=== PATIENT | male | born 1930 | race Caucasian/White ===

== ENCOUNTER 2017-08-20 12:21 | Observation (INO) | payer OTHER ==
--- NOTE | 2017-08-20 12:31 | CPEKG ---
Heart Rate: 136 RR Interval: 441 P-R Interval: 460 QRSD Interval: 78 QT Interval: 292 QTC Interval: 440 P Malcolm: 0 QRS Malcolm: 71 T Wave Malcolm: 91 EKG Severity - ABNORMAL ECG - EKG Impression: atrial flutter with RVR EKG Impression: CONSIDER LEFT VENTRICULAR HYPERTROPHY Electronically Signed By: Ada Flores 21-Aug-2017 10:39:43
--- NOTE | 2017-08-20 12:39 | EDPHY ---
H & P Time Seen by Provider: 08/20/17 12:27 HPI/ROS: CHIEF COMPLAINT: atrial flutter HISTORY OF PRESENT ILLNESS: This patient is an 87 year old male with history of atrial flutter with a chief complaint of atrial flutter with RVR. He saw his physician today for sinus drainage and his heart rate was noted to be in the 130s. He is asymptomatic and has not noticed the rapid heart rate, dizziness, shortness of breath or chest pain. Unclear onset of atrial flutter. He had a previous episode of atrial flutter 1 year ago and subsequent cardioversion. He was on amiodarone transiently, but this medication has been discontinued. He takes a baby aspirin daily. No known aggravating factors and no recent illness. REVIEW OF SYSTEMS: A 10 point review of systems was performed and is negative with the exception of the elements mentioned in the history of present illness. Past Medical/Surgical History: 1. Hyperlipidemia (Lipitor) 2. Hypothyroid (Synthroid) 3. BPH (Avodart) 4. Atrial flutter Social History: . Family member at bedside. Lives in [place]. Retired. Physical Exam: General Appearance: Alert, no distress Eyes: Pupils equal and round, no conjunctival pallor or injection ENT, Mouth: Mucous membranes moist Neck: Normal inspection Respiratory: Lungs are clear to auscultation Cardiovascular: Regular tachycardia Gastrointestinal: Abdomen is soft and non- tender Neurological: A&O, nonfocal, normal gait Skin: Warm and dry, no rash Extremities: Nontender, no pedal edema Psychiatric: Mood and affect normal Constitutional: Initial Vital Signs Temperature (C) 36.9 C 08/20/17 12:40 Heart Rate 136 H 08/20/17 12:40 Respiratory Rate 16 08/20/17 12:40 Blood Pressure 161/103 H 08/20/17 12:40 O2 Sat (%) 93 08/20/17 12:40 O2 Delivery Mode Room Air Allergies/Adverse Reactions: Cephalosporins Allergy (Verified 08/20/17 13:32) Rash Home Medications: Medication Instructions Recorded Aspirin [Aspirin 81mg (*)] 81 mg PO DAILY 08/20/17 Atorvastatin Calcium [Lipitor 10 10 mg PO DAILY 08/20/17 mg (*)] Atorvastatin Calcium [Lipitor 20 20 mg PO DAILY 08/20/17 mg (*)] Dutasteride [Avodart 0.5 MG (*)] 0.5 mg PO DAILY 08/20/17 Levothyroxine [Synthroid 88 mcg 88 mcg PO DAILY06 08/20/17 (*)] Medical Decision Making - Diagnostics EKG Interpretation: EKG interpreted by me reveals atrial flutter, ventricular rate 136 ED Course/Re-evaluation: 87 y/o male presents with atrial flutter. Exam reveals regular tachycardia, otherwise unremarkable. IV established. Plan for CBC, BMP. Plan to administer 125mg Diltiazem. Plan to admit. 12:57 Consulted with hospitalist service. Dr. Bruno accepts admission. Differential Diagnosis: Differential diagnosis includes though it is not limited to hypotension, pneumonia, pulmonary embolism, aortic dissection, pericarditis, acute coronary syndrome. - Data Points Laboratory Results: Laboratory Results 08/20/17 12:35 08/20/17 12:35 Medications Given: Apixaban (Eliquis) 5 mg PO BID [facility] Stop: 02/16/18 17:44 Last Admin: 08/20/17 18:43 Dose: 5 mg Levothyroxine Sodium (Synthroid) 88 mcg PO DAILY06 [facility] Stop: 02/17/18 05:59 Last Admin: 08/21/17 06:04 Dose: 88 mcg Discontinued Medications Diltiazem HCl (Cardizem 25 Mg/5 Ml Vial) 10 mg IVP EDNOW ONE Stop: 08/20/17 12:55 Last Admin: 08/20/17 13:11 Dose: 10 mg Diltiazem HCl 125 mg/ Dextrose 125 mls @ 0 mls/hr IV EDNOW ONE; As Directed PRN Reason: Protocol Stop: 08/20/17 12:55 Last Admin: 08/20/17 13:34 Dose: 125 mls Departure - Departure Disposition: [facility] Inpatient Acute Clinical Impression: Atrial flutter Qualifiers: Atrial flutter type: unspecified Qualified Code(s): I48.92 - Unspecified atrial flutter Condition: Fair Report Scribed for: Ada Flores Report Scribed by: Mely Tabares Date of Report: 08/20/17 Time of Report: 12:58 Physician Review and Approval Statement: 08/20/17 12:58 Portions of this note were transcribed by a medical technicians. I personally performed a history, physical exam, medical decision making, and confirmed accuracy of information the transcribed note.
[2017-08-20 12:44] LABS: % IMMATURE GRANULYOCYTES 0.3 % (0.0-1.1); ABSOLUTE IMMATURE GRANULOCYTES 0.03 10^3/uL (0.00-0.10); ADD DIFF? NO; ADD MORPH? NO; ADD SCAN? NO; ATYPICAL LYMPHOCYTE FLAG 0 (0-99); FRAGMENT RBC FLAG 0 (0-99); HEMATOCRIT 45.4 % (40.0-51.0); HEMOGLOBIN 15.5 g/dL (13.7-17.5); LEFT SHIFT FLG 0 (0-99); LIPEMIA HEMOLYSIS FLAG 90 (0-99); MEAN CELL HEMOGLOBIN 35.6 pg (27.9-34.1); MEAN CELL HEMOGLOBIN CONCENTR. 34.1 g/dL (32.4-36.7); MEAN CELL VOLUME 104.1 fL (81.5-99.8); MEAN PLATELET VOLUME 8.9 fL (8.7-11.7); PLATELET CLUMPS FLAG 0 (0-99); PLATELET COUNT 264 10^3/uL (150-400); RED BLOOD CELL COUNT 4.36 10^6/uL (4.40-6.38); RED CELL DISTRIBUTION WIDTH 13.2 % (11.5-15.2)
[2017-08-20] MEDS ORDERED: DILTIAZEM 25 MG/5 ML VIAL IVP ONE (12:54)
[2017-08-20] MEDS ORDERED: DILTIAZEM 125 MG in D5W 125 ML IV ONE (12:54)
[2017-08-20 12:58] LABS: ANION GAP 18 mEq/L (8-16); CALCIUM 9.4 mg/dL (8.5-10.4); CARBON DIOXIDE 25 mEq/l (22-31); CHLORIDE 100 mEq/L (97-110); CREATININE 1.1 mg/dL (0.7-1.3); GLOMERULAR FILTRATION RATE > 60; GLUCOSE 116 mg/dL (70-100); POTASSIUM 4.8 mEq/L (3.5-5.2); SODIUM 143 mEq/L (134-144)
--- NOTE | 2017-08-20 16:16 | PDCARCONS ---
Cardiology Consult Reason for Consult: Atrial flutter noted at PCP office Chief Complaint: No complaints Requesting Physician: Hospitalist Crew History of Present Illness: Patient is an 87 y/o male, known to [facility] (Dr. Jung Woods) with atrial flutter treated in the past, hypothyroidism, HLP, and BPH, who presents to [facility], after PCP noted accelerated, irregular heart rates in the office. Patient is without any cardiovascular complaints - no chest pains or pressure, no PND or orthopnea. Daughter, present in the room with the patient, wanted to have the patient seen by PCP given concerns about "congestion ". While in the office, PCP noted aforementioned heart rate/rhythm. If anything, there has been a slight drop in functional ability (fatigue is more present). In speaking with the patient, earlier this year, the patient was treated for atrial fib/flutter with VALERIE and successful cardioversion. Patient was on Eliquis without issues post cardioversion given a lower [id number] risk (2 for age). ASA therapy was to continue (and has). While in the ER, patient was started on CCB IV drip, and there has been moderate reduction in the patient's heart rate, but atrial flutter continues to be noted. Remainder of the 12 point review of systems was unremarkable. History Information - Allergies/Home Medication List Allergies/Adverse Reactions: Cephalosporins Allergy (Verified 08/20/17 13:32) Rash Home Medications: Aspirin [Aspirin 81mg (*)] 81 mg PO DAILY 08/20/17 [Last Taken 08/20/17] Atorvastatin Calcium [Lipitor 10 mg (*)] 10 mg PO DAILY 08/20/17 [Last Taken ] Atorvastatin Calcium [Lipitor 20 mg (*)] 20 mg PO DAILY 08/20/17 [Last Taken ] Dutasteride [Avodart 0.5 MG (*)] 0.5 mg PO DAILY 08/20/17 [Last Taken 08/20/17] Levothyroxine [Synthroid 88 mcg (*)] 88 mcg PO DAILY06 08/20/17 [Last Taken ] I have personally reviewed and updated: family history, medical history, social history, surgical history Past Medical History: - Past Medical History atrial fibrillation, hyperlipidemia - Surgical History Reports: no pertinent surgical hx - Family History Positive for: non-pertinent - Social History Smoking Status: Never smoked Alcohol Use: None Drug Use: None Cardiac History - Cardiac History Past Cardiac History: OTHER (atrial flutter) Cardiac Risk Factors: lipidemia, age > 65, male Timing/Duration: Unsure Associated Symptoms: denies symptoms Age in Years: 75 or older Sex: Male Congestive Heart Failure History: No Hypertension History: No Stroke/TIA/Thromboembolism History: No Vascular Disease History: No Diabetes Mellitus: No [id number] Score: 5 Physical Exam Physical Exam: Temp Pulse Resp BP Pulse Ox 36.6 C 93 20 118/70 94 08/20/17 14:10 08/20/17 14:10 08/20/17 14:10 08/20/17 14:10 08/20/17 14:10 Constitutional: no apparent distress, appears nourished, not in pain Eyes: PERRL Ears, Nose, Mouth, Throat: moist mucous membranes, hearing normal Cardiovascular: irregularly irregular, tachycardia, No systolic murmur, No diastolic murmur, No JVD Peripheral Pulses: 2+: dorsalis-pedis (R), dorsalis-pedis (L) Respiratory: no respiratory distress, no rales or rhonchi, clear to auscultation Gastrointestinal: normoactive bowel sounds Skin: warm, normal color, No no induration, No rash Musculoskeletal: full muscle strength Neurologic: AAOx3, sensation intact bilaterally, CN II-XII Intact, No weakness Psychiatric: interacting appropriately, not anxious Lab and Imaging 08/20/17 12:35 08/20/17 12:35 WBC 9.58 10^3/uL (3.80-9.50) H 08/20/17 12:35 RBC 4.36 10^6/uL (4.40-6.38) L 08/20/17 12:35 Hgb 15.5 g/dL (13.7-17.5) 08/20/17 12:35 Hct 45.4 % (40.0-51.0) 08/20/17 12:35 MCV 104.1 fL (81.5-99.8) H 08/20/17 12:35 MCH 35.6 pg (27.9-34.1) H 08/20/17 12:35 MCHC 34.1 g/dL (32.4-36.7) 08/20/17 12:35 RDW 13.2 % (11.5-15.2) 08/20/17 12:35 Plt Count 264 10^3/uL (150-400) 08/20/17 12:35 MPV 8.9 fL (8.7-11.7) 08/20/17 12:35 Neut % (Auto) 76.5 % (39.3-74.2) H 08/20/17 12:35 Lymph % (Auto) 12.9 % (15.0-45.0) L 08/20/17 12:35 [place] % (Auto) 9.1 % (4.5-13.0) 08/20/17 12:35 Eos % (Auto) 0.3 % (0.6-7.6) L 08/20/17 12:35 Baso % (Auto) 0.9 % (0.3-1.7) 08/20/17 12:35 Nucleat RBC Rel Count 0.0 % (0.0-0.2) 08/20/17 12:35 Absolute Neuts (auto) 7.32 10^3/uL (1.70-6.50) H 08/20/17 12:35 Absolute Lymphs (auto) 1.24 10^3/uL (1.00-3.00) 08/20/17 12:35 Absolute Monos (auto) 0.87 10^3/uL (0.30-0.80) H 08/20/17 12:35 Absolute Eos (auto) 0.03 10^3/uL (0.03-0.40) 08/20/17 12:35 Absolute Basos (auto) 0.09 10^3/uL (0.02-0.10) 08/20/17 12:35 Absolute Nucleated RBC 0.00 10^3/uL (0-0.01) 08/20/17 12:35 Immature Gran % 0.3 % (0.0-1.1) 08/20/17 12:35 Immature Gran # 0.03 10^3/uL (0.00-0.10) 08/20/17 12:35 Sodium 143 mEq/L (134-144) 08/20/17 12:35 Potassium 4.8 mEq/L (3.5-5.2) 08/20/17 12:35 Chloride 100 mEq/L (97-110) 08/20/17 12:35 Carbon Dioxide 25 mEq/l (22-31) 08/20/17 12:35 Anion Gap 18 mEq/L (8-16) H 08/20/17 12:35 BUN 20 mg/dL (7-23) 08/20/17 12:35 Creatinine 1.1 mg/dL (0.7-1.3) 08/20/17 12:35 Estimated GFR > 60 08/20/17 12:35 Glucose 116 mg/dL (70-100) H 08/20/17 12:35 Calcium 9.4 mg/dL (8.5-10.4) 08/20/17 12:35 Visualized and Interpreted Chest x-ray results: No Visualized and Interpreted EKG results: Yes EKG Interpretation: Positive for: other (atrial flutter ) Telemetry: atrial flutter A/P Assessment: Patient is an 87 y/o male with return of atrial flutter. Uncertain duration of this event - the patient is without appreciable symptoms. There has been slightly more "fatigue" than normal, but no other complaints were voiced. Earlier in 2016, the patient had VALERIE and successful cardioversion for atrial fib /flutter, and given low [id number] score, was taken off NOAC therapy (ASA therapy continued). Daughter was present with the patient in the room today. Plan: Would complete the IV CCB therapy as at present - this has led to some reduction in heart rates noted. Would resume Eliquis therapy as prior for CVA prophylaxis. Would consider echocardiography for assessment of LVEF, chamber dimensions, wall motion, and valve morphology. Given an uncertainty on the duration of the arrhythmia AND a lack of symptoms with the arrhythmia, would not aggressively pursue VALERIE with cardioversion at present. Would convert IV to PO CCB therapy tomorrow, and work towards outpatient follow up with discussion about VALERIE/cardioversion at that time. Hope for better rate control, but need to monitor heart rates and the response in this older male to ensure that heart rates to not become significantly bradycardia. Would also monitor the patient to ensure that there is not borderline hypotension given the reintroduction in NOAC therapy (with concerns for fall). These concerns were discussed with patient and family today. Will continue to follow patient while in house.
[2017-08-20] MEDS ORDERED: ONDANSETRON DISINTEGRATING 4 MG TAB PO PRN (17:06)
[2017-08-20] MEDS ORDERED: ACETAMINOPHEN 325 MG TAB PO PRN (17:06)
[2017-08-20] MEDS ORDERED: ONDANSETRON 4 MG/2 ML VIAL IVP PRN (17:06)
--- NOTE | 2017-08-20 17:13 | PDGENHP ---
History and Physical - Chief Complaint Aflutter - History of Present Illness This patient is an 87 year old male with history of atrial flutter who was seen by his PCP today and sent to the E.D due to Aflutter. He had an episode and subsequent cardioversion in October, 11 months ago, and was followed by Dr. oWods. He is not currently anticoagulated but does take a daily baby aspirin. He visited his primary care physician for a sinus problem this morning who noted the abnormal rhythm. No cough or fever. He currently feels asymptomatic. He denies dizziness or shortness of breath. No swelling in his legs, chest pain, abdominal pain, urinary complains, or other associated symptoms. Cardizem IV was started with improvement of his HR. BP has been stable. He continue to no be symptomatic. Past Medical/Surgical History: 1. Hyperlipidemia (Lipitor) 2. Hypothyroid (Synthroid) 3. BPH (Avodart) 4. Atrial flutter (History of cardioversion, not anticoagulated. Takes ASA 81mg QD) Soc: No tobacco, daily ETOH (one drink daily), no illicits, lives alone FmHx: [place] History Information - Allergies/Home Medication List Allergies/Adverse Reactions: Cephalosporins Allergy (Verified 08/20/17 13:32) Rash Home Medications: Aspirin [Aspirin 81mg (*)] 81 mg PO DAILY 08/20/17 [Last Taken 08/20/17] Atorvastatin Calcium [Lipitor 10 mg (*)] 10 mg PO DAILY 08/20/17 [Last Taken ] Atorvastatin Calcium [Lipitor 20 mg (*)] 20 mg PO DAILY 08/20/17 [Last Taken ] Dutasteride [Avodart 0.5 MG (*)] 0.5 mg PO DAILY 08/20/17 [Last Taken 08/20/17] Levothyroxine [Synthroid 88 mcg (*)] 88 mcg PO DAILY06 08/20/17 [Last Taken ] I have personally reviewed and updated: medical history, social history, surgical history - Past Medical History atrial fibrillation, hyperlipidemia - Surgical History Reports: no pertinent surgical hx - Family History Positive for: non-pertinent - Social History Smoking Status: Never smoked Alcohol Use: None Drug Use: None Review of Systems Review of Systems: ROS: 10pt was reviewed & negative except for what was stated in HPI & below Physical Exam Physical Exam: Temp Pulse Resp BP Pulse Ox 36.6 C 93 20 118/70 94 08/20/17 14:10 08/20/17 14:10 08/20/17 14:10 08/20/17 14:10 08/20/17 14:10 Constitutional: no apparent distress, appears nourished Eyes: PERRL, EOMI Ears, Nose, Mouth, Throat: moist mucous membranes, hearing normal Cardiovascular: irregularly irregular, No edema Respiratory: no respiratory distress, no rales or rhonchi, clear to auscultation Gastrointestinal: normoactive bowel sounds, soft, non-tender abdomen Genitourinary: no bladder fullness Skin: warm Neurologic: AAOx3 Psychiatric: interacting appropriately, not anxious, not encephalopathic Lab Data & Imaging Review 08/20/17 12:35 08/20/17 12:35 WBC 9.58 10^3/uL (3.80-9.50) H 08/20/17 12:35 RBC 4.36 10^6/uL (4.40-6.38) L 08/20/17 12:35 Hgb 15.5 g/dL (13.7-17.5) 08/20/17 12:35 Hct 45.4 % (40.0-51.0) 08/20/17 12:35 MCV 104.1 fL (81.5-99.8) H 08/20/17 12:35 MCH 35.6 pg (27.9-34.1) H 08/20/17 12:35 MCHC 34.1 g/dL (32.4-36.7) 08/20/17 12:35 RDW 13.2 % (11.5-15.2) 08/20/17 12:35 Plt Count 264 10^3/uL (150-400) 08/20/17 12:35 MPV 8.9 fL (8.7-11.7) 08/20/17 12:35 Neut % (Auto) 76.5 % (39.3-74.2) H 08/20/17 12:35 Lymph % (Auto) 12.9 % (15.0-45.0) L 08/20/17 12:35 [place] % (Auto) 9.1 % (4.5-13.0) 08/20/17 12:35 Eos % (Auto) 0.3 % (0.6-7.6) L 08/20/17 12:35 Baso % (Auto) 0.9 % (0.3-1.7) 08/20/17 12:35 Nucleat RBC Rel Count 0.0 % (0.0-0.2) 08/20/17 12:35 Absolute Neuts (auto) 7.32 10^3/uL (1.70-6.50) H 08/20/17 12:35 Absolute Lymphs (auto) 1.24 10^3/uL (1.00-3.00) 08/20/17 12:35 Absolute Monos (auto) 0.87 10^3/uL (0.30-0.80) H 08/20/17 12:35 Absolute Eos (auto) 0.03 10^3/uL (0.03-0.40) 08/20/17 12:35 Absolute Basos (auto) 0.09 10^3/uL (0.02-0.10) 08/20/17 12:35 Absolute Nucleated RBC 0.00 10^3/uL (0-0.01) 08/20/17 12:35 Immature Gran % 0.3 % (0.0-1.1) 08/20/17 12:35 Immature Gran # 0.03 10^3/uL (0.00-0.10) 08/20/17 12:35 Sodium 143 mEq/L (134-144) 08/20/17 12:35 Potassium 4.8 mEq/L (3.5-5.2) 08/20/17 12:35 Chloride 100 mEq/L (97-110) 08/20/17 12:35 Carbon Dioxide 25 mEq/l (22-31) 08/20/17 12:35 Anion Gap 18 mEq/L (8-16) H 08/20/17 12:35 BUN 20 mg/dL (7-23) 08/20/17 12:35 Creatinine 1.1 mg/dL (0.7-1.3) 08/20/17 12:35 Estimated GFR > 60 08/20/17 12:35 Glucose 116 mg/dL (70-100) H 08/20/17 12:35 Calcium 9.4 mg/dL (8.5-10.4) 08/20/17 12:35 Assessment & Plan Assessment: #Atrial flutter, unknown how long he has been in this rhythm. #HLD #Hypothyroidism #Weakness and Deconditioning Plan: -Cards following -Cont IV Diltiazem, consider transitioning to PO tomorrow -pending clinical course, VALERIE in either the inpatient setting or outpatient -restart Eliquis which he was previously on -PT/OT -Check lipid panel -restart home meds. Hold aspirin -DNR
[2017-08-20] MEDS ORDERED: DILTIAZEM 125 MG in D5W 125 ML IV SCH (17:15)
[2017-08-20] MEDS: APIXABAN 5 MG TAB PO SCH (18:43)
[2017-08-21 05:18] LABS: % IMMATURE GRANULYOCYTES 0.3 % (0.0-1.1); ABSOLUTE IMMATURE GRANULOCYTES 0.02 10^3/uL (0.00-0.10); ADD DIFF? NO; ADD MORPH? NO; ADD SCAN? NO; ATYPICAL LYMPHOCYTE FLAG 10 (0-99); FRAGMENT RBC FLAG 0 (0-99); HEMATOCRIT 40.2 % (40.0-51.0); HEMOGLOBIN 13.5 g/dL (13.7-17.5); LEFT SHIFT FLG 0 (0-99); LIPEMIA HEMOLYSIS FLAG 80 (0-99); MEAN CELL HEMOGLOBIN 34.9 pg (27.9-34.1); MEAN CELL HEMOGLOBIN CONCENTR. 33.6 g/dL (32.4-36.7); MEAN CELL VOLUME 103.9 fL (81.5-99.8); MEAN PLATELET VOLUME 9.3 fL (8.7-11.7); PLATELET CLUMPS FLAG 10 (0-99); PLATELET COUNT 222 10^3/uL (150-400); RED BLOOD CELL COUNT 3.87 10^6/uL (4.40-6.38); RED CELL DISTRIBUTION WIDTH 13.3 % (11.5-15.2)
[2017-08-21 05:34] LABS: ANION GAP 10 mEq/L (8-16); CALCIUM 8.6 mg/dL (8.5-10.4); CARBON DIOXIDE 27 mEq/l (22-31); CHLORIDE 104 mEq/L (97-110); CHOLESTEROL 125 mg/dL (140-220); CHOLESTEROL/HDL RATIO 2.27 RATIO (1.00-4.97); CREATININE 1.1 mg/dL (0.7-1.3); GLOMERULAR FILTRATION RATE > 60; GLUCOSE 89 mg/dL (70-100); HIGH DENSITY LIPOPROTEIN 55 mg/dL (40-65); LDL/HDL RATIO 1.07 RATIO (1.00-3.64); LOW DENSITY LIPOPROTEIN 59 mg/dL (80-100); NON-HIGH DENSITY LIPOPROTEIN 70 mg/dL (90-129); POTASSIUM 4.4 mEq/L (3.5-5.2); SODIUM 141 mEq/L (134-144); TRIGLYCERIDE 57 mg/dL (40-150); VERY LOW DENSITY LIPOPROTEINS 11 mg/dL (8-25)
[2017-08-21] MEDS ORDERED: LEVOTHYROXINE 88 MCG TAB PO SCH (06:00)
[2017-08-21 08:05] VITALS: O2SAT 93
[2017-08-21] MEDS: APIXABAN 5 MG TAB PO SCH (08:42)
--- NOTE | 2017-08-21 08:58 | CPEKG ---
Heart Rate: 88 RR Interval: 682 QRSD Interval: 118 QT Interval: 404 QTC Interval: 489 QRS [place]: 50 T Wave [place]: 69 EKG Severity - ABNORMAL ECG - EKG Impression: ATRIAL FLUTTER, A-RATE 263; New since August 20, 2017 EKG Impression: NONSPECIFIC INTRAVENTRICULAR CONDUCTION DELAY Electronically Signed By: Jr Moy 21-Aug-2017 10:00:03
[2017-08-21] MEDS ORDERED: DUTASTERIDE 0.5 MG CAP PO SCH (09:00)
[2017-08-21] MEDS ORDERED: ATORVASTATIN CALCIUM 20 MG TAB PO SCH (09:00)
[2017-08-21] MEDS ORDERED: METOPROLOL TARTRATE 25 MG TAB PO SCH (10:15)
--- NOTE | 2017-08-21 10:16 | PDCARPN ---
Cardiology Progress Note Chief Complaint: No complaints Assessment/Plan: Assessment: Patient is an 87 y/o male with history of atrial flutter (s/p VALERIE with cardioversion in early 2016). Uncertain duration of the atrial flutter at present. Patient is without any appreciable symptoms. No chest pains or pressure, no PND or orthopnea. Daughter was present with the patient in the room today. Eliquis was resumed. Heart rates continue to elevate with minimal activity (walk to the bathroom today with heart rates to 130-140 bpm). Plan: (1) Continue therapy on Eliquis (2) Would stop CCB therapy (3) Start lower dose beta bradford (25 mg twice per day metoprolol tartrate) - monitor heart rates (4) D/C planning for today (5) Outpatient follow up with cardiology in < 1 week for discussion about timing of VALERIE with possible cardioversion Subjective: No cardiovascular complaints. Reviewed/Discussed With: family, hospitalist Objective: Vital Signs (8 Hrs) Temp Pulse Resp BP Pulse Ox 08/21/17 08:00 36.4 C 88 18 111/80 93 08/21/17 03:14 36.4 C 87 18 124/75 H 94 Intake/Output (24 Hrs) 08/20/17 08/21/17 08/22/17 05:59 05:59 05:59 Intake Total 650 Balance 650 Intake: Oral (ml) 600 IV Infused (ml) 50 Diltiazem 125 mg In D5w 50 125 ml @ Per Protocol IV CONT JOAO Rx#:[id number] Other: Weight 72.8 kg Number of Voids Toilet 3 Result Diagrams: 08/21/17 04:14 08/21/17 04:14 Telemetry: atrial flutter with variable conduction Echocardiogram: Limited echo with grossly normal LVEF - Physical Exam Constitutional: WDWN, healthy appearing, no apparent distress Eyes: PERRL, EOMI Ears, Nose, Mouth, Throat: moist mucous membranes Cardiovascular: no murmurs, no rubs, irregularly irregular Peripheral Pulses: 2+: dorsalis-pedis (R), dorsalis-pedis (L) Respiratory: clear to auscultate bilat, no crackles Gastrointestinal: normoactive bowel sounds Skin: no rashes, no edema Musculoskeletal: no muscular tenderness Neurologic: AAOx3, CN II-XII grossly intact Psychiatric: cooperative, interactive, following commands ICD10 Worksheet Patient Problems: Problems Problem Status Onset Atrial flutter Acute
[2017-08-21 11:07] VITALS: BP 129/67; PULSE 89; RESP 14; TEMP 97.7
--- NOTE | 2017-08-21 13:18 | PDIAF ---
- Diagnosis Diagnosis: AFib Code Status: Do Not Resuscitate - Medication Management Discharge Medications: Medications to Continue on Transfer Aspirin [Aspirin 81mg (*)] 81 mg PO DAILY 08/20/17 [Last Taken 08/20/17] Atorvastatin Calcium [Lipitor 10 mg (*)] 10 mg PO DAILY 08/20/17 [Last Taken ] Atorvastatin Calcium [Lipitor 20 mg (*)] 20 mg PO DAILY 08/20/17 [Last Taken ] Dutasteride [Avodart 0.5 MG (*)] 0.5 mg PO DAILY 08/20/17 [Last Taken 08/20/17] Levothyroxine [Synthroid 88 mcg (*)] 88 mcg PO DAILY06 08/20/17 [Last Taken ] Discharge Medications: Refer to the Discharge Home Medication list for PRN reason. - Orders Services needed: Registered Nurse, Physical Therapy - Follow Up Care Current Providers and Referrals: Christiano Durán MD [Primary Care Provider] - As per Instructions
--- NOTE | 2017-08-21 13:24 | PDDCSUM ---
Discharge Summary Discharge Summary: HPI/Hospital course: 87 yo M admitted for atrial flutter discovered at PCP's office. Unclear chronicity. Managed with IV Diltiazem intially then changed to Metoprolol 25mg BID per card recommendation. Given unclear chronicity, will not cardiovert. Eliquis has been started. Will f/u with Cards to determine need for cardioversion ON RA and overall stable will have PT at home. DDX: #Atrial flutter, unknown how long he has been in this rhythm. #HLD #Hypothyroidism #Weakness and Deconditioning Exam: IRR/IRR CTA B No LE edeam AAOx3 meds: see med rec f/u per above. total time spent on discharge is 35 minutes
--- NOTE | 2017-08-21 13:46 | ASMTCMCOM ---
CM Note CM Note Notes: CM Discharge Note: Per PT, patient would benefit from homecare. I spoke with patient and his daughter who are amenable to this. Tess at [facility] can accept patient. Orders for home RN/PT written by hospitalist. Patient will be transported home by his daugther. Date Signed: 08/21/2017 01:45 PM Electronically Signed By:Savita Cordova RN
--- NOTE | 2017-08-21 14:35 | ECHO ---
[email or web address] [address] [address] Main: [phone] Fax: Transthoracic Echocardiogram Name: AILEEN BARBOSA MR#: [id number] Study Date: 08/21/2017 Study Time: 09:36 AM Date of : 1930 Age: 87 year(s) Height: 185.4 cm (73 in.) Weight: 72.58 kg (160 lb.) BSA: 1.96 m2 Gender: Male Examination: Limited Echo Indication: Atrial flutter/Eval LV function Image Quality: Contrast: Requested by: Feliberto Bruno BP: 111 mmHg/80 mmHg Heart Rate: Rhythm: Indication: Atrial flutter/Eval LV function Procedure Staff Technical Intern: Donna Grace Physician: Kaden Morton Requesting Provider: Conclusions: Global hypercontractility of the left ventricle. The ejection fraction is estimated to be 70-75 %. Measurements: Chambers Valvular Assessment AV/MV Valvular Assessment TV/PV Normal Normal Normal Name Value Range Name Value Range Name Value Range IVSd (2D): 1.6 cm (0.6 cm-1.1 cm) EF Range: 70-75 % Continued Measurements: Findings: Left Ventricle: Moderate concentric LV hypertrophy. Global hypercontractility of the left ventricle. The ejection fraction is estimated to be 70-75 %. No regional wall motion abnormality. Exam Comments: Limited 2-D echo. (No Signature Object) Patient: AILEEN BARBOSA Study Date: 08/21/2017 Page 1 of 1 09:36 AM [id number]
--- NOTE | 2017-08-21 17:03 | ASDISCHSUM ---
Discharge Information Plan Status:Home with Home Health Medically Cleared to Leave:08/21/2017 Discharge Date:08/21/2017 02:00 PM CM D/C Disposition: ADT D/C Disposition:[id number] Projected Discharge Date:08/21/2017 12:00 AM Transportation at D/C: Discharge Delay Reason: Follow-Up Date:08/21/2017 12:00 AM Discharge Slot: Final Diagnosis: Placement Information Patient Contact Information Contact Name:MOHINDER Relationship:Daughter Address:[address] Work Phone: City:[place] Alternate Phone: State/Zip Code:[place] [address] Email: Financial Information Financial Class: Primary Plan Desc:MEDICARE OUTPATIENT Primary Plan Number:[id number] Secondary Plan Desc:[employer] PPO HMO OPEN ACC LOCAL Secondary Plan Number:[id number] Assessment Information [facility] CM Progress Note CM Note CM Note Notes: CM Discharge Note: Per PT, patient would benefit from homecare. I spoke with patient and his daughter who are amenable to this. Tess at [facility] can accept patient. Orders for home RN/PT written by hospitalist. Patient will be transported home by his daugther. Date Signed: 08/21/2017 01:45 PM Electronically Signed By:Savita Cordova RN Intervention Information Intervention Type:*ADELA-Signed Date of Service:08/21/2017 10:22 AM Patient Type:Observation Staff Member:Kiki Olivarez Hours: Discipline: Severity: Comment:
== END 2017-08-21 14:00 | disposition home health service (06) ==
LOC: F2W 13:45
PROVIDERS: ADMIT Family Medicine; ATTEND Family Medicine
PROC: 3E033RZ Introduction of Antiarrhythmic into Peripheral Vein, Percutaneous Approach (ICD-10-PCS; principal; 2017-08-20)
DX: I48.92 Unspecified atrial flutter (principal); E78.5 Hyperlipidemia, unspecified; E03.9 Hypothyroidism, unspecified; R53.1 Weakness; N40.0 Benign prostatic hyperplasia without lower urinary tract symptoms
CPT/HCPCS: 93005; 93308; 97161; 97165; G0378; G8978; G8979; G8987; G8988; G8989; 96374

== ENCOUNTER 2017-09-01 06:21 | Day surgery (SDC) | payer OTHER ==
[2017-09-01] MEDS ORDERED: BENZOCAINE UNIT DOSE SPRAY HURRICAINE MM ONE (06:24)
[2017-09-01] MEDS ORDERED: ATROPINE SULFATE 1 MG/10 ML SYR IVP ONE (06:24)
[2017-09-01] MEDS ORDERED: MIDAZOLAM 2 MG/2 ML VIAL IVP ONE (06:24)
[2017-09-01] MEDS ORDERED: NS 500 ML IV ONE (06:24)
[2017-09-01] MEDS ORDERED: fentaNYL 100 MCG/2 ML INJ IVP ONE (06:24)
--- NOTE | 2017-09-01 06:43 | CPEKG ---
Heart Rate: 85 RR Interval: 706 P-R Interval: 200 QRSD Interval: 84 QT Interval: 432 QTC Interval: 514 P [place]: 84 QRS [place]: 57 T Wave [place]: 62 EKG Severity - ABNORMAL ECG - EKG Impression: SINUS RHYTHM EKG Impression: BORDERLINE R WAVE PROGRESSION, ANTERIOR LEADS EKG Impression: BORDERLINE ST ELEVATION, INFERIOR LEADS EKG Impression: PROLONGED QT INTERVAL Electronically Signed By: Pankaj Cardoso 02-Sep-2017 10:43:12
[2017-09-01 07:06] LABS: INR 1.4 (0.83-1.16); PROTIME(PATIENT) 17.1 SEC (12.0-15.0)
--- NOTE | 2017-09-01 07:58 | PDANEPAE ---
ANE History of Present Illness VALERIE CV for atrial flutter ANE Past Medical History - Cardiovascular History Hx Arrhythmias: Yes - Pulmonary History Hx Oxygen in Use at Home: No Hx Sleep Apnea: No - Endocrine History Hx Diabetes: No Hypothyroid: Yes - Renal History Renal History Comment: BPH - GI History Gastrointestinal History Comment: diverticulosis ANE Review of Systems Review of systems is: negative Review of Systems: - Exercise capacity Exercise capacity: >=4 METS ANE Patient History - Allergies Allergies/Adverse Reactions: Cephalosporins Allergy (Verified 08/20/17 13:32) Rash - Home Medications Home medications: home medication list seen and reviewed Home Medications: Atorvastatin Calcium [Lipitor 10 mg (*)] 10 mg PO DAILY 08/20/17 [Last Taken ] Atorvastatin Calcium [Lipitor 20 mg (*)] 20 mg PO DAILY 08/20/17 [Last Taken ] Dutasteride [Avodart 0.5 MG (*)] 0.5 mg PO DAILY 08/20/17 [Last Taken 08/20/17] Levothyroxine [Synthroid 88 mcg (*)] 88 mcg PO DAILY06 08/20/17 [Last Taken 04/12 05:00] - NPO status NPO Status: no food or drink >8 hours - Anes Hx Anes Hx: no prior problems - Smoking Hx Smoking Status: Never smoked - Family Anes Hx Family Anes Hx: none ANE Labs/Vital Signs - Labs Result Diagrams: 09/01/17 06:43 - Vital Signs Height: 185 cm Weight: 73.5 kg ANE Physical Exam - Airway Neck exam: FROM Mallampati Score: Class 1 Mouth exam: normal dental/mouth exam - Pulmonary Pulmonary: no respiratory distress - Cardiovascular Cardiovascular: regular rate and rhythym - ASA Status ASA Status: III ANE Anesthesia Plan Total IV Anesthesia: Yes
[2017-09-01] MEDS ORDERED: PROPOFOL 200 MG/20 ML VIAL ONE ×2 (07:59→08:26)
--- NOTE | 2017-09-01 08:34 | PDHPUP ---
History & Physical Update H&P update statement: This history and physical update is based on an assessment of the patient which was completed after admission or registration (within 24 hours), but prior to the surgery/procedure. H&P update: H&P reviewed & patient examined, no change in patient's condition since H&P completed
--- NOTE | 2017-09-01 08:39 | CPEKG ---
Heart Rate: 61 RR Interval: 984 P-R Interval: 196 QRSD Interval: 84 QT Interval: 448 QTC Interval: 452 P [place]: 59 QRS [place]: 70 T Wave [place]: 61 EKG Severity - BORDERLINE ECG - EKG Impression: SINUS RHYTHM EKG Impression: PROBABLE LEFT ATRIAL ABNORMALITY EKG Impression: CONSIDER ANTERIOR INFARCT Electronically Signed By: Pankaj Cardoso 02-Sep-2017 10:43:03
--- NOTE | 2017-09-01 08:39 | CPEKG ---
Heart Rate: 61 RR Interval: 984 P-R Interval: 196 QRSD Interval: 84 QT Interval: 448 QTC Interval: 452 P [place]: 59 QRS [place]: 70 T Wave [place]: 61 EKG Severity - BORDERLINE ECG - EKG Impression: SINUS RHYTHM EKG Impression: PROBABLE LEFT ATRIAL ABNORMALITY EKG Impression: CONSIDER ANTERIOR INFARCT Electronically Signed By: Pankaj Cardoso 02-Sep-2017 10:43:03
--- NOTE | 2017-09-01 08:41 | POSTANESTH ---
Post Anesthetic Evaluation Cardiovascular Status: Normal, Stable Respiratory Status: Normal, Stable, Similar to Pre-op Cond. Level of Consciousness/Mental Status: Can Participate in Eval, Mildly Sleepy, Arousable Pain Control: Adequate, Prn Tx Ordered Nausea/Vomiting Control: Adequate, Prn Tx Ordered Complications Possibly Related to Anesthesia: None Noted
== END 2017-09-01 09:53 | disposition home or self-care (01) ==
LOC: FCATH 06:21
PROVIDERS: ATTEND Internal Medicine Cardiovascular Disease
PROC: B245ZZ4 Ultrasonography of Left Heart, Transesophageal (ICD-10-PCS; principal; 2017-09-01)
PROC: 5A2204Z Restoration of Cardiac Rhythm, Single (ICD-10-PCS; principal; 2017-09-01)
DX: I48.92 Unspecified atrial flutter (principal); N40.0 Benign prostatic hyperplasia without lower urinary tract symptoms; E78.00 Pure hypercholesterolemia, unspecified; E03.9 Hypothyroidism, unspecified
CPT/HCPCS: J0461; J2704

== ENCOUNTER → 2017-11-27 | Outpatient (CLI) | payer OTHER | LOC: BHFA 13:00 | PROVIDERS: ATTEND Internal Medicine Cardiovascular Disease | DX: I48.92 Unspecified atrial flutter (principal) ==

== ENCOUNTER 2017-12-31 07:03 | Observation (INO) | payer OTHER ==
[2017-12-31] MEDS ORDERED: NS 1,000 ML IV ONE (07:06)
--- NOTE | 2017-12-31 07:24 | CPEKG ---
Heart Rate: 102 RR Interval: 588 QRSD Interval: 86 QT Interval: 392 QTC Interval: 511 QRS [place]: 26 T Wave [place]: -79 EKG Severity - ABNORMAL ECG - EKG Impression: ATRIAL FLUTTER, A-RATE 254 EKG Impression: BORDERLINE R WAVE PROGRESSION, ANTERIOR LEADS Electronically Signed By: Artemio Martines 31-Dec-2017 08:47:23
[2017-12-31 07:42] LABS: PLATELET COUNT 265 10^3/uL (150-400)
[2017-12-31 07:51] LABS: INR 1.04 (0.83-1.16); PROTIME(PATIENT) 13.8 SEC (12.0-15.0)
[2017-12-31] MEDS ORDERED: LIDOCAINE 1% 300 MG/30 ML SDV ONE (08:11)
[2017-12-31] MEDS ORDERED: HEPARIN 10,000 UNIT/10 ML MDV (1,000 UNIT/ML) ONE (08:11)
[2017-12-31] MEDS ORDERED: BUPIVACAINE 0.5% 10 ML SDV ONE (08:12)
[2017-12-31] MEDS ORDERED: ISOPROTERENOL HCL/D5W 0.2 MG/50 ML BAG IV ONE (08:13)
[2017-12-31] MEDS ORDERED: fentaNYL 250 MCG/5 ML INJ ONE (08:37)
[2017-12-31] MEDS ORDERED: ONDANSETRON 4 MG/2 ML VIAL ONE (08:38)
[2017-12-31] MEDS ORDERED: PROPOFOL 200 MG/20 ML VIAL ONE (08:38)
[2017-12-31] MEDS ORDERED: ROCURONIUM 50 MG/5 ML VIAL ONE (08:38)
[2017-12-31] MEDS ORDERED: DEXAMETHASONE 4 MG/ML VIAL ONE (08:38)
[2017-12-31] MEDS ORDERED: PHENYLEPHRINE HCL 100 MCG/ML SYR ONE (08:39)
--- NOTE | 2017-12-31 08:46 | PDGENHP ---
History & Physical Chief Complaint: fatigue, AFL History of Present Illness: AFL, recurrent despite 2 CV, fatigue Relevant Physical Exam: s1s2 tach, cta, ao3 Cardiorespiratory Assessment: recurrent symptomatic AFL for ablation
--- NOTE | 2017-12-31 08:49 | PDANEPAE ---
ANE Past Medical History - Cardiovascular History Hx Arrhythmias: Yes - Pulmonary History Hx Oxygen in Use at Home: No Hx Sleep Apnea: No - Endocrine History Hx Diabetes: No - Renal History Renal History Comment: BPH - GI History Gastrointestinal History Comment: diverticulosis ANE Review of Systems Review of Systems: ANE Patient History - Allergies Allergies/Adverse Reactions: cephalexin [From Keflex] Allergy (Verified 12/26/17 11:20) Rash Cephalosporins Allergy (Verified 08/20/17 13:32) Rash - Home Medications Home Medications: Atorvastatin Calcium [Lipitor 10 mg (*)] 10 mg PO DAILY 08/20/17 [Last Taken 1 Day Ago ~12/30/17] Atorvastatin Calcium [Lipitor 20 mg (*)] 20 mg PO DAILY 08/20/17 [Last Taken 1 Day Ago ~12/30/17] Dutasteride [Avodart 0.5 MG (*)] 0.5 mg PO DAILY 08/20/17 [Last Taken 1 Day Ago ~12/30/17] Levothyroxine [Synthroid 88 mcg (*)] 88 mcg PO DAILY06 08/20/17 [Last Taken 1 Day Ago ~12/30/17] Enoxaparin [Lovenox 60 MG (*)] 60 mg SQ BID 12/26/17 [Last Taken 1 Day Ago ~04/13] - Anes Hx Anes Hx: no prior problems - Smoking Hx Smoking Status: Never smoked ANE Labs/Vital Signs - Labs Result Diagrams: 12/31/17 07:23 12/31/17 07:23 - Vital Signs Height: 185.42 cm Weight: 72.575 kg ANE Physical Exam - Airway Neck exam: FROM Mallampati Score: Class 2 Mouth exam: normal dental/mouth exam - Pulmonary Pulmonary: no respiratory distress, no rales or rhonchi, clear to auscultation - Cardiovascular Cardiovascular: no murmur, rub, or gallop, tachycardia - ASA Status ASA Status: III ANE Anesthesia Plan Anesthesia Plan: general endotracheal anesthesia
[2017-12-31] MEDS ORDERED: PHENYLEPHRINE 10 MG/ML SDV ONE (09:20)
[2017-12-31] MEDS ORDERED: NALOXONE HCL 0.4 MG/ML INJ IVP PRN (10:00)
[2017-12-31] MEDS ORDERED: ONDANSETRON 4 MG/2 ML VIAL IVP PRN (10:27)
[2017-12-31] MEDS ORDERED: PROMETHAZINE HCL 25 MG/ML INJ IVP PRN (10:27)
[2017-12-31] MEDS ORDERED: HYDROCODONE/APAP 5/325 TAB PO PRN (10:27)
[2017-12-31] MEDS ORDERED: fentaNYL 100 MCG/2 ML INJ IVP PRN (10:27)
[2017-12-31] MEDS ORDERED: PROTAMINE SULFATE 50 MG/5 ML VIAL IVP ONE (10:36)
[2017-12-31] MEDS ORDERED: SUGAMMADEX SODIUM 200 MG/2 ML VIAL IVP ONE (10:42)
--- NOTE | 2017-12-31 11:21 | EPPROC ---
Electrophysiology Procedure Note: ELECTROPHYSIOLOGIC STUDY AND CATHETER MEDIATED ABLATION FOR SUBEUSTACHIAN ISTHMUS DEPENDENT COUNTERCLOCKWISE ATRIAL FLUTTER: INDICATION: Recurrent atrial flutter PROCEDURES PERFORMED: 80504-69 EP evaluation with RA/RV/LA pace/record, with arrhythmia induction 90151-20 EP evaluation with RA/RV pace record, insert/reposition catheter, with arrhythmia induction 36819 SVT ablation 74111 3D mapping Fluoroscopy Catheters & Anesthesia: The patient arrived in the Electrophysiology Laboratory in the fasting state. The right clavicular region, right groin, and left groin area were prepped and draped in the usual sterile manner. Anesthesiologist Dr. Frank Gerber administered general anesthesia. Appropriate non-invasive blood pressure, pulse oximetry and end-tidal CO2 monitoring was established. All catheters were placed percutaneously using the modified Seldinger technique , and advanced into position under fluoroscopic guidance. One #7 Slovenian deflectable octapolar electrode catheter was advanced to the His-bundle position via the left femoral vein this was later was placed via the left femoral vein into the coronary sinus. One # 7 Slovenian Halo catheter was inserted through the left femoral vein and was placed at the tricuspid annulus. Heparin was administered to keep ACT > 250 seconds. On arrival to the Electrophysiology Laboratory the patient was in Atrial flutter, CL 250 ms . Entrainment mapping from lateral TA, septal TA, proximal CS and distal CS confirmed cavotricuspid isthmus dependent atrial flutter. In preparation for ablation of typical atrial flutter, a high-resolution 3D (3 dimensional) Carto electroanatomical map of the sub-Eustachian isthmus and right atrium was obtained during pacing of the posterolateral coronary sinus. For ablation of typical atrial flutter, one Agilis sheath was placed in the right atrium. A #8 Slovenian deflectable quadrapolar electrode catheter (2mm-5mm- 2mm spacing) with 3.5 mm irrigated tip electrode and location sensor for the [employer] mapping system was inserted in the long sheath and advanced to the right atrium. Radiofrequency applications were applied between the tricuspid annulus at 0630 oclock as seen in the NOREEN view and the inferior vena cava. This achieved conduction block across the isthmus. No atrial arrhythmias were inducible post ablation. Post ablation, a high-resolution electroanatomical map of the sub-Eustachian isthmus was obtained during pacing of the posterolateral coronary sinus. This confirmed conduction block across the sub-Eustachian isthmus. Bidirectional block was also confirmed by pacing. Septal to lateral conduction time was 220 milliseconds. The catheters were removed. Protamine was administered. Sheaths were removed in the EP lab after applying subcutaneous purse string suture. The patient was transferred to the cardiovascular holding area in stable condition. There were no apparent complications. CONCLUSIONS: 1. 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 2. Successful catheter mediated ablation of cavotricuspid isthmus achieving bi -directional conduction block across cavotricuspid isthmus. 3. No atrial arrhythmias inducible post ablation. 4. No apparent complications. Patient Problems: Problems Problem Status Onset Atrial flutter Acute
--- NOTE | 2017-12-31 11:28 | CPEKG ---
Heart Rate: 82 RR Interval: 732 P-R Interval: 184 QRSD Interval: 84 QT Interval: 408 QTC Interval: 477 P [place]: 60 QRS [place]: 65 T Wave [place]: 64 EKG Severity - ABNORMAL ECG - EKG Impression: SINUS RHYTHM EKG Impression: LEFT ATRIAL ABNORMALITY EKG Impression: BORDERLINE PROLONGED QT INTERVAL Electronically Signed By: Artemio Martines 31-Dec-2017 12:31:59
[2017-12-31] MEDS: APIXABAN 5 MG TAB PO SCH (20:44)
[2018-01-01 05:00] LABS: PLATELET COUNT 215 10^3/uL (150-400)
[2018-01-01] MEDS ORDERED: LEVOTHYROXINE 88 MCG TAB PO SCH (06:00)
[2018-01-01 06:15] LABS: CREATINE KINASE 51 IU/L (0-224)
[2018-01-01 07:23] VITALS: TEMP 97.6
[2018-01-01] MEDS: APIXABAN 5 MG TAB PO SCH (08:28)
--- NOTE | 2018-01-01 08:47 | CPEKG ---
Heart Rate: 73 RR Interval: 822 P-R Interval: 184 QRSD Interval: 92 QT Interval: 408 QTC Interval: 450 P [place]: 61 QRS [place]: 59 T Wave [place]: 48 EKG Severity - BORDERLINE ECG - EKG Impression: SINUS RHYTHM w PAC EKG Impression: BORDERLINE R WAVE PROGRESSION, ANTERIOR LEADS Electronically Signed By: Artemio Martines 01-Jan-2018 09:00:43
[2018-01-01] MEDS ORDERED: ATORVASTATIN CALCIUM 10 MG TAB PO SCH (09:00)
[2018-01-01] MEDS ORDERED: ATORVASTATIN CALCIUM 20 MG TAB PO SCH (09:00)
[2018-01-01] MEDS ORDERED: DUTASTERIDE 0.5 MG CAP PO SCH (09:00)
[2018-01-01 11:13] VITALS: BP 103/56; PULSE 76; RESP 12; O2SAT 96
--- NOTE | 2018-01-01 14:48 | ECHO ---
[email or web address] [address] [address] Main: [phone] Fax: Transthoracic Echocardiogram Name: AILEEN BARBOSA MR#: [id number] Study Date: 01/01/2018 Study Time: 07:45 AM Date of : 1930 Age: 87 year(s) Height: 185.4 cm (73 in.) Weight: 72.58 kg (160 lb.) BSA: 1.96 m2 Gender: Male Examination: Indication: F/U post EP study Image Quality: Contrast: Requested by: Artemio Martines BP: / Heart Rate: Rhythm: Indication: F/U post EP study Procedure Staff Supervisor Inspection And Testing: Donna Quintero RDCS Reading Physician: Kaden Morton MD Requesting Provider: Supervisor Inspection And Testing: Reading Physician: Kaden Morton MD Requesting Provider: Conclusions: Normal size left ventricle. Mild concentric LV hypertrophy. Normal global systolic LV function. The ejection fraction is estimated to be 65-70 %. Normal size right ventricle. The left atrium is normal in size. The right atrium is normal in size. The mitral valve is normal in appearance and function. Mild mitral valve regurgitation is present. Mild aortic cusp calcification is noted. The tricuspid valve is normal in appearance and function. Mild tricuspid regurgitation is present. Borderline ascending aorta dilatation.. Mildly dilated aortic root measuring 4.1 cm. No pericardial effusion. Measurements: Chambers Valvular Assessment AV/MV Valvular Assessment TV/PV Normal Normal Normal Name Value Range Name Value Range Name Value Range IVSd (2D): 1.2 cm (0.6 cm-1.1 AV meanP mmHg ( - ) TR Vmax: 2.38 mm/s ( - ) cm) MV E Vmax: 0.76 m/s ( - ) TR PGmax: 23 mmHg ( - ) LVDd (2D): 3.8 cm (4.2 cm-5.9 MV A Vmax: 0.48 m/s ( - ) syst. PAP: 28 mmHg ( - ) cm) MV E/A: 1.58 ( - ) LVDs (2D): 2.3 cm (2.1 cm-4 cm) Patient: AILEEN BARBOSA Study Date: 01/01/2018 Page 1 of 2 07:45 AM LVPWd (2D): 1.1 cm (0.6 cm-1 cm) LVEF (2D): 73 (>=54 %) EF Range: 65-70 % Continued Measurements: Chambers Valvular Assessment AV/MV Valvular Assessment TV/PV Name Value Name Value Name Value LADs: 3.1 cm MV E/E' Septal: 14.10 CVP (est.): 5 mmHg LADs Lon.0 cm MV E/E' Lateral: 8.80 LA Area: 22.3 cm2 Additional Vessels Name Value Ao Ascendin.9 cm Findings: Left Ventricle: Normal size left ventricle. Mild concentric LV hypertrophy. Normal global systolic LV function. The ejection fraction is estimated to be 65-70 %. No regional wall motion abnormality. Right Ventricle: Normal size right ventricle. Left Atrium: The left atrium is normal in size. Right Atrium: The right atrium is normal in size. Mitral Valve: The mitral valve is normal in appearance and function. Mild mitral valve regurgitation is present. Aortic Valve: Mild aortic cusp calcification is noted. Tricuspid Valve: The tricuspid valve is normal in appearance and function. Mild tricuspid regurgitation is present. The pulmonary artery pressure is normal. Pulmonic Valve: Pulmonary valve not well visualized. Aorta: Borderline ascending aorta dilatation.. The aorta is normal. Mildly dilated aortic root measuring 4.1 cm. Pericardium: No pericardial effusion. (No Signature Object) Patient: AILEEN BARBOSA Study Date: 01/01/2018 Page 2 of 2 07:45 AM [id number]
--- NOTE | 2018-01-01 19:10 | GDS ---
[f rep st] DISCHARGE SUMMARY ADMIT DIAGNOSES: 1. Atrial flutter. 2. Planned electrophysiology study with possible ablation. DISCHARGE DIAGNOSES: 1. Atrial flutter. 2. Successful atrial flutter ablation with no complications. COURSE OF HOSPITALIZATION: This gentleman was seen by Dr. Artemio Martines in clinic. He has known atrial flutter nonresponsive to medications. It was recommended that he proceed with EP study and possible atrial flutter ablation. He was in agreement with this plan. He was taken to the EP lab by Dr. Solis Martines on 12/31/2017 where he was able to successfully ablate with no complications. He was taken t o PCU for overnight observation where he has done well. He has had no arrhythmias. He remains in si nus rhythm. He is on Eliquis for anticoagulation. He will go home on metoprolol tartrate 12.5 mg b. i.d. Groin sites are intact with no bleeding, induration, or pain. He has been up ambulating with n o problems. At this time, he currently is stable for discharge. MEDICATIONS: He will go home on Lipitor 20 mg daily, Avodart 0.5 mg daily, Synthroid 88 mcg daily, E liquis 5 mg twice daily, metoprolol tartrate 12.5 mg daily. ALLERGIES: Cephalexin and cephalosporins. PHYSICAL EXAMINATION: VITAL SIGNS: On day of discharge blood pressure 103/56, heart rate 76 and reg ular. HEART: There were no murmurs, rubs, or gallops. LUNGS: Sounds are clear to auscultation. N o wheezes, rales, or rhonchi. EXTREMITIES: Bilateral groin sites are intact with no bleeding, indur ation, or pain. Echocardiogram on 01/01/2018 showed ejection fraction 65% to 70%, no significant valvular problems, n o pericardial effusion. Electrophysiology study 12/31/2017. INDICATION: Recurrent atrial flutter. CONCLUSION: 1. 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 2. Successful catheter mediation ablation of cavotricuspid isthmus achieving bidirectional conductio n block across cavotricuspid isthmus. 3. No atrial arrhythmias inducible post ablation. 4. No apparent complications. DISCHARGE PLAN: He was given instructions for groin precautions. Written instructions were addition ally provided. He will avoid heavy lifting, pushing, pulling greater than 10 pounds over the next week, then gradual ly resume activities. He will follow up with Dr. Martines in 4 weeks. At this time, he currently is stable for discharge. /[id number]/MODL
[2018-01-01] MEDS ORDERED: METOPROLOL TARTRATE 25 MG TAB PO SCH (21:00)
--- NOTE | 2018-01-03 10:45 | ECHO ---
[email or web address] [address] [address] Main: [phone] Fax: Transesophageal Echocardiography Name: AILEEN BARBOSA MR#: [id number] Study Date: 12/31/2017 Study Time: 09:13 AM Date of : 1930 Age: 87 year(s) Height: ( ) Weight: ( ) BSA: Gender: Male Examination: VALERIE Indication: Pre EP Image Quality: Contrast: Requested by: Artemio Martines Heart Rate: Rhythm: BP: / Procedure Staff Conveyor Man: Addy Angel RDCS Reading Physician: Artemio Martines MD Requesting Provider: VALERIE Exam Details Conclusions: Normal global systolic LV function. An agitated saline study was performed and was negative for intracardiac shunting. No thrombus in left appendage. Measurements: Chambers Valvular Assessment AV/MV Valvular Assessment TV/PV Normal Normal Normal Name Value Range Name Value Range Name Value Range Additional Measurements: Findings: Left Ventricle: Normal global systolic LV function. Left Atrium: An agitated saline study was performed and was negative for intracardiac shunting. Left Atrial Appendage: No thrombus in left appendage. Right Atrium: The right atrium is normal in size. Mitral Valve: The mitral valve is normal in appearance and function. Aortic Valve: Patient: AILEEN BARBOSA Study Date: 12/31/2017 Page 1 of 2 09:13 AM The aortic valve is tri-leaflet and functions normally. Aorta: The aorta is normal. Pericardium: No pericardial effusion. l1n (No Signature Object) Patient: AILEEN BARBOSA Study Date: 12/31/2017 Page 2 of 2 09:13 AM [id number]
== END 2018-01-01 12:20 | disposition home or self-care (01) ==
LOC: FCATH 07:03 → F2W 11:13
PROVIDERS: ADMIT Internal Medicine Cardiovascular Disease; ATTEND Internal Medicine Cardiovascular Disease
PROC: B245ZZ4 Ultrasonography of Left Heart, Transesophageal (ICD-10-PCS; principal; 2017-12-31)
PROC: 4A023FZ Measurement of Cardiac Rhythm, Percutaneous Approach (ICD-10-PCS; principal; 2017-12-31)
PROC: 02H73MZ Insertion of Cardiac Lead into Left Atrium, Percutaneous Approach (ICD-10-PCS; principal; 2017-12-31)
PROC: 02K83ZZ Map Conduction Mechanism, Percutaneous Approach (ICD-10-PCS; principal; 2017-12-31)
PROC: 02583ZZ Destruction of Conduction Mechanism, Percutaneous Approach (ICD-10-PCS; principal; 2017-12-31)
PROC: 5A1213Z Performance of Cardiac Pacing, Intermittent (ICD-10-PCS; principal; 2017-12-31)
PROC: B2151ZZ Fluoroscopy of Left Heart using Low Osmolar Contrast (ICD-10-PCS; principal; 2017-12-31)
DX: I48.92 Unspecified atrial flutter (principal); N40.0 Benign prostatic hyperplasia without lower urinary tract symptoms; E78.00 Pure hypercholesterolemia, unspecified; E78.5 Hyperlipidemia, unspecified; I10 Essential (primary) hypertension; E03.9 Hypothyroidism, unspecified; Z96.651 Presence of right artificial knee joint
CPT/HCPCS: 93005; 93306; 93312; 93613; 93621; 93653; C1731; C1732; C1766; J1100; J1644; J2370; J2405; J2704; J3010; J2720

== ENCOUNTER 2018-02-21 17:44 | Inpatient (IN) | payer OTHER ==
--- NOTE | 2018-02-21 18:00 | EDPHY ---
H & P Stated Complaint: DIFFICULTY SWALLOWING. HX- STRICTURES Time Seen by Provider: 02/21/18 18:00 - Personal History Current Tetanus/Diphtheria Vaccine: Yes Current Tetanus Diphtheria and Acellular Pertussis (TDAP): Yes - Medical/Surgical History Hx Asthma: No Hx Chronic Respiratory Disease: No Hx Diabetes: No Hx Cardiac Disease: No Hx Renal Disease: No Hx Cirrhosis: No Hx Alcoholism: No Hx HIV/AIDS: No Hx Splenectomy or Spleen Trauma: No Other PMH: afib with cardioversion 10/2016, aflutter, hypothyroid, bph, hypercholestermia - Social History Smoking Status: Never smoked Constitutional: Initial Vital Signs Temperature (C) 37.1 C 02/21/18 17:46 Heart Rate 106 H 02/21/18 17:46 Respiratory Rate 18 02/21/18 17:46 Blood Pressure 137/90 H 02/21/18 17:46 O2 Sat (%) 93 02/21/18 17:46 O2 Delivery Mode Room Air Allergies/Adverse Reactions: cephalexin [From Keflex] Allergy (Verified 12/26/17 11:20) Rash Cephalosporins Allergy (Verified 08/20/17 13:32) Rash Home Medications: Medication Instructions Recorded Atorvastatin Calcium [Lipitor 10 10 mg PO DAILY 08/20/17 mg (*)] Atorvastatin Calcium [Lipitor 20 20 mg PO DAILY 08/20/17 mg (*)] Dutasteride [Avodart 0.5 MG (*)] 0.5 mg PO DAILY 08/20/17 Levothyroxine [Synthroid 88 mcg 88 mcg PO DAILY06 08/20/17 (*)] Apixaban [Eliquis] 5 mg PO BID #60 tab 08/21/17 Metoprolol Tartrate [Lopressor 25 12.5 mg PO BID tab 01/01/18 mg (*)] Medical Decision Making ED Course/Re-evaluation: CHIEF COMPLAINT: Difficulty swallowing HISTORY OF PRESENT ILLNESS: The patient is an 88 y/o male with atrial fibrillation post ablation, hypertension, and hypothyroidism complaining of progressive dysphagia over the last 6 months that has worsened acutely over the last [address] Durham, ENT, 2 weeks ago and was advised to get a scope, but he has been unable to get in for this yet. He has primarily been consuming smoothies since symptoms began due to difficulty eating and has lost weight during this time. Symptoms worsened 3 days ago and he has now been able to keep down food or fluid and is vomiting. He says, "It feels like my throat is blocked up and like there's something lodged in there." He is now having difficulty swallowing secretions as well. He denies associated pain with swallowing, abdominal pain, constipation, diarrhea, fever, or other acute complaints. He has no history of prior stricture dilation. REVIEW OF SYSTEMS: A 10 point review of systems was performed and is negative with the exception of the elements mentioned in the history of present illness. PHYSICAL EXAM: HR, BP, O2 Sat, RR. Temp noted General Appearance: Alert, well hydrated, appropriate, and non-toxic appearing. Head: Atraumatic without scalp tenderness or obvious injury Eyes: Pupils equal, round, reactive to light and accommodation, EOMI, no trauma , no injection. Ears: Clear bilaterally, no perforation, normal landmarks Nose: Atraumatic, no rhinorrhea, clear. Throat: There is no erythema or exudates, no lesions, normal tonsils, mucus membranes moist. Excessive secretions. Neck: Supple, nontender, no lymphadenopathy. Respiratory: No retractions, no distress, no wheezes, and no accessory muscle use. Lungs are clear to auscultation bilaterally. Cardiovascular: Irregular rate and rhythm, no murmurs, rubs, or gallops. Good capillary refill all extremities. Gastrointestinal: Abdomen is soft, nontender, non-distended, no masses, no rebound, no guarding, no peritoneal signs. Musculoskeletal: Normal active ROM of all extremities, atraumatic. Neurological: Alert, appropriate, and interactive. The patient has non-focal cranial nerves, motor, sensory, and cerebellar exam. Skin: No rashes, good turgor, no nodules on palpation. Past medical history: Atrial fibrillation/flutter - Eliquis, BPH, diverticulosis , Gillbert's syndrome, hypertension, inguinal hernia, hypercholesterolemia, hyperlipidemia, hypothyroidism, osteoarthritis Past surgical history: Cardiac ablation 2017, appendectomy, back surgery, hernia surgery, knee replacement, lithotripsy, sinus surgery Family history: Noncontributory Social history: Social alcohol use. Exercises regularly. . Retired. Nonsmoker. Family member at bedside. Prior medical records reviewed including [facility] note 11/27/17 for atrial flutter. DIFFERENTIAL DIAGNOSIS: The differential diagnosis for the patient's dysphagia included but was not limited to esophageal stricture, foreign body obstruction, esophageal mass, thyroid mass. MEDICAL DECISION MAKING: This is an 88 y/o male with a 6-month history of dysphagia that worsened acutely over the last 3 days. He is now unable to keep food or fluids down and is vomiting. He has profuse secretions on exam and appears thin. Plan for IV, labs, GI consult to determine if he can be scoped tonight. 1838: Consulted with Dr. Almanzar GI. He recommends admitting with NPO status, Protonix, and plans to scope tomorrow morning. 40mg IV Protonix and 1L IV NS ordered. Spoke with hospitalist service. Dr. Chavez accepts admission. - Data Points Medications Given: Discontinued Medications Sodium Chloride (Ns) 1,000 mls @ 0 mls/hr IV EDNOW ONE; Wide Open PRN Reason: Protocol Stop: 02/21/18 18:49 Last Admin: 02/21/18 19:00 Dose: 1,000 mls Pantoprazole Sodium (Protonix) 40 mg IVP EDNOW ONE Stop: 02/21/18 18:44 Last Admin: 02/21/18 19:09 Dose: 40 mg Departure - Departure Disposition: [facility] Inpatient Acute Clinical Impression: Difficulty swallowing Qualifiers: Dysphagia type: unspecified Qualified Code(s): R13.10 - Dysphagia, unspecified Condition: Fair Report Scribed for: Phani Perry Report Scribed by: Radha Marcum Date of Report: 02/21/18 Time of Report: 18:11
[2018-02-21] MEDS ORDERED: PANTOPRAZOLE SODIUM 40 MG VIAL IVP ONE (18:43)
[2018-02-21] MEDS ORDERED: NS 1,000 ML IV ONE (18:48)
[2018-02-21 19:06] LABS: PLATELET COUNT 263 10^3/uL (150-400)
[2018-02-21 19:16] LABS: INR 1.33 (0.83-1.16); PROTIME(PATIENT) 16.7 SEC (12.0-15.0)
[2018-02-21] MEDS ORDERED: ONDANSETRON 4 MG/2 ML VIAL IVP PRN (19:24)
--- NOTE | 2018-02-21 20:19 | PDGENHP ---
History and Physical - Chief Complaint dysphagia - History of Present Illness 88 yo male with h/o A fib, hypothyroidism and hyperlipidemia presents to ED with progressive dysphagia symptoms. He noticed dysphagia starting 2 weeks ago. Over the past days, it has become quite problematic. He can no long tolerate even a smoothie, noting regurgitation. He also endorses weight loss. No CP, SOB, abdominal pain, or diarrhea. He has a h/o A fib/flutter and recently underwent ablation by Dr. Martines in 12/2017. He continues on eliquis with a cardiac event monitor on, but hasn't been able to swallow his eliquis. His last dose was Friday morning. In the ED, GI was consulted and pt is admitted to the hospital with plans for EGD in the morning. History Information - Allergies/Home Medication List Allergies/Adverse Reactions: cephalexin [From Keflex] Allergy (Verified 12/26/17 11:20) Rash Cephalosporins Allergy (Verified 08/20/17 13:32) Rash Home Medications: Atorvastatin Calcium [Lipitor 10 mg (*)] 10 mg PO DAILY 08/20/17 [Last Taken ] Atorvastatin Calcium [Lipitor 20 mg (*)] 20 mg PO DAILY 08/20/17 [Last Taken ] Dutasteride [Avodart 0.5 MG (*)] 0.5 mg PO DAILY 08/20/17 [Last Taken 02/21/18] Levothyroxine [Synthroid 88 mcg (*)] 88 mcg PO DAILY06 08/20/17 [Last Taken ] I have personally reviewed and updated: family history, medical history, social history, surgical history - Past Medical History atrial fibrillation, hyperlipidemia Additional medical history: Hypothyroidism. BPH. A fib - s/p ablation 05/2018. Chronic anticoagulation - Surgical History Reports: no pertinent surgical hx - Family History Positive for: non-pertinent - Social History Smoking Status: Never smoked Alcohol Use: None Drug Use: None Review of Systems Review of Systems: ROS: 10pt was reviewed & negative except for what was stated in HPI & below Physical Exam Physical Exam: Temp Pulse Resp BP Pulse Ox 36.5 C 84 16 152/76 H 94 02/21/18 20:04 02/21/18 20:04 02/21/18 20:04 02/21/18 20:04 02/21/18 20:04 O2 (L/minute) 2 Constitutional: no apparent distress Eyes: PERRL Ears, Nose, Mouth, Throat: moist mucous membranes Cardiovascular: regular rate and rhythym Respiratory: no respiratory distress, clear to auscultation Gastrointestinal: normoactive bowel sounds, soft, non-tender abdomen Skin: warm Musculoskeletal: full muscle strength Neurologic: AAOx3 Psychiatric: interacting appropriately Lab Data & Imaging Review 02/21/18 18:58 02/21/18 18:58 WBC 10.75 10^3/uL (3.80-9.50) H 02/21/18 18:58 RBC 3.94 10^6/uL (4.40-6.38) L 02/21/18 18:58 Hgb 13.2 g/dL (13.7-17.5) L 02/21/18 18:58 Hct 39.5 % (40.0-51.0) L 02/21/18 18:58 MCV 100.3 fL (81.5-99.8) H 02/21/18 18:58 MCH 33.5 pg (27.9-34.1) 02/21/18 18:58 MCHC 33.4 g/dL (32.4-36.7) 02/21/18 18:58 RDW 13.2 % (11.5-15.2) 02/21/18 18:58 Plt Count 263 10^3/uL (150-400) 02/21/18 18:58 MPV 9.0 fL (8.7-11.7) 02/21/18 18:58 Neut % (Auto) 81.0 % (39.3-74.2) H 02/21/18 18:58 Lymph % (Auto) 8.7 % (15.0-45.0) L 02/21/18 18:58 Norton % (Auto) 8.9 % (4.5-13.0) 02/21/18 18:58 Eos % (Auto) 0.5 % (0.6-7.6) L 02/21/18 18:58 Baso % (Auto) 0.5 % (0.3-1.7) 02/21/18 18:58 Nucleat RBC Rel Count 0.0 % (0.0-0.2) 02/21/18 18:58 Absolute Neuts (auto) 8.72 10^3/uL (1.70-6.50) H 02/21/18 18:58 Absolute Lymphs (auto) 0.93 10^3/uL (1.00-3.00) L 02/21/18 18:58 Absolute Monos (auto) 0.96 10^3/uL (0.30-0.80) H 02/21/18 18:58 Absolute Eos (auto) 0.05 10^3/uL (0.03-0.40) 02/21/18 18:58 Absolute Basos (auto) 0.05 10^3/uL (0.02-0.10) 02/21/18 18:58 Absolute Nucleated RBC 0.00 10^3/uL (0-0.01) 02/21/18 18:58 Immature Gran % 0.4 % (0.0-1.1) 02/21/18 18:58 Immature Gran # 0.04 10^3/uL (0.00-0.10) 02/21/18 18:58 PT 16.7 SEC (12.0-15.0) H 02/21/18 18:58 INR 1.33 (0.83-1.16) H 02/21/18 18:58 APTT 28.3 SEC (23.0-38.0) 02/21/18 18:58 Sodium 143 mEq/L (135-145) 02/21/18 18:58 Potassium 4.6 mEq/L (3.5-5.2) 02/21/18 18:58 Chloride 105 mEq/L (97-110) 02/21/18 18:58 Carbon Dioxide 28 mEq/l (22-31) 02/21/18 18:58 Anion Gap 10 mEq/L (8-16) 02/21/18 18:58 BUN 26 mg/dL (7-23) H 02/21/18 18:58 Creatinine 0.9 mg/dL (0.7-1.3) 02/21/18 18:58 Estimated GFR > 60 02/21/18 18:58 Glucose 110 mg/dL (70-100) H 02/21/18 18:58 Calcium 9.1 mg/dL (8.5-10.4) 02/21/18 18:58 Assessment & Plan Assessment: Dysphagia - progressive with weight loss. Discussed with GI, Dr. Almanzar will perform EGD in am with possible dilation. IV PPI. Keep NPO, IVF's for hydration. Speech eval planned. Holding Eliquis. A fib/flutter - s/p ablation 12/2017, event monitor noted. Pulse palpates irregular. Will check EKG. Holding Eliquis for EGD in am. Last dose Fri AM, tomorrow morning will be 48 hrs since last dose. Given NPO status, will order PRN IV Metoprolol with BP and HR parameters. Hypothyroidism - cont levothyroxine once he can safely take po. Hyperlipidemia - cont statin when able BPH - cont dutasteride when able Full code DVT PPLX - SCD's, holding eliquis as above Dispo - anticipate >48 hrs hospitalization for ongoing evaluation and management of dysphagia
[2018-02-21] MEDS ORDERED: METOPROLOL TARTRATE 5 MG/5 ML INJ IVP PRN (20:34)
--- NOTE | 2018-02-21 21:12 | CPEKG ---
Heart Rate: 84 RR Interval: 714 P-R Interval: 180 QRSD Interval: 82 QT Interval: 380 QTC Interval: 450 P Stoddard: 27 QRS Stoddard: 47 T Wave Stoddard: 51 EKG Severity - ABNORMAL ECG - EKG Impression: Sinus rhythm with frequent PAC EKG Impression: PROBABLE LEFT ATRIAL ABNORMALITY EKG Impression: BORDERLINE R WAVE PROGRESSION, ANTERIOR LEADS Electronically Signed By: Artemio Martines 23-Feb-2018 06:19:21
[2018-02-21] MEDS: D5W NS W/ 20 KCl/L 1,000 ML IV SCH (21:44)
[2018-02-21] MEDS: PANTOPRAZOLE SODIUM 40 MG VIAL IVP SCH (21:45)
--- NOTE | 2018-02-21 22:12 | PDMN ---
Medical Necessity Medical necessity: C/M review: est. > 2 MN LOS for eval and TX of acute and progressively worsening dysphagia with weight loss, patient can no longer even tolerate a smoothie orally planned02/22/2018 GI consult, EGD, hold Eliquis for EGD, ongoing NPO, IV fluids, IV Protonix, IV Metoprolol as needed with BP and heart rate parameters, acute inpt PT/OT/ST, comorbid atrial fibrillation / atrial flutter S/P 12/2017 ablation chronic anticoagulation, monitor in place, hypothyroidism, hyperlipidemia BPH per H/P.
[2018-02-22 05:14] LABS: PLATELET COUNT 239 10^3/uL (150-400)
[2018-02-22] MEDS: D5W NS W/ 20 KCl/L 1,000 ML IV SCH (07:29)
--- NOTE | 2018-02-22 08:56 | PDANEPAE ---
ANE Past Medical History - Cardiovascular History Hx Arrhythmias: Yes - Pulmonary History Hx Oxygen in Use at Home: No Hx Sleep Apnea: No Sleep Apnea Screening Result - Last Documented: Negative - Endocrine History Hx Diabetes: No - Renal History Renal History Comment: BPH - GI History Gastrointestinal History Comment: diverticulosis - Chronic Pain History Chronic Pain: No ANE Review of Systems Review of Systems: ANE Patient History - Allergies Allergies/Adverse Reactions: cephalexin [From Keflex] Allergy (Verified 12/26/17 11:20) Rash Cephalosporins Allergy (Verified 08/20/17 13:32) Rash - Home Medications Home Medications: Atorvastatin Calcium [Lipitor 10 mg (*)] 10 mg PO DAILY 08/20/17 [Last Taken ] Atorvastatin Calcium [Lipitor 20 mg (*)] 20 mg PO DAILY 08/20/17 [Last Taken ] Dutasteride [Avodart 0.5 MG (*)] 0.5 mg PO DAILY 08/20/17 [Last Taken 02/21/18] Levothyroxine [Synthroid 88 mcg (*)] 88 mcg PO DAILY06 08/20/17 [Last Taken ] - NPO status NPO Since - Liquids (Date): 02/21/18 NPO Since - Liquids (Time): 11:00 NPO Since - Solids (Date): 02/21/18 NPO Since - Solids (Time): 08:00 - Smoking Hx Smoking Status: Never smoked - Alcohol Use Alcohol Use: None ANE Labs/Vital Signs - Labs Result Diagrams: 02/22/18 04:30 02/22/18 04:30 - Vital Signs Blood Pressure: 111/59 Heart Rate: 69 Respiratory Rate: 20 O2 Sat (%): 97 Height: 185.42 cm Weight: 65.771 kg ANE Physical Exam - Airway Neck exam: FROM Mallampati Score: Class 2 - Pulmonary Pulmonary: no respiratory distress - Cardiovascular Cardiovascular: regular rate and rhythym - ASA Status ASA Status: III ANE Anesthesia Plan Anesthesia Plan: general endotracheal anesthesia
[2018-02-22] MEDS ORDERED: ROCURONIUM 50 MG/5 ML VIAL ONE (08:58)
[2018-02-22] MEDS ORDERED: fentaNYL 100 MCG/2 ML INJ ONE (08:58)
[2018-02-22] MEDS ORDERED: LIDOCAINE 2% 100 MG/5 ML SYR ONE (08:58)
[2018-02-22] MEDS ORDERED: PROPOFOL 200 MG/20 ML VIAL ONE (08:58)
--- NOTE | 2018-02-22 09:11 | GCON ---
[f rep st] CONSULTATION INPATIENT CONSULTATION NOTE REQUESTING PHYSICIANS: Urmila Chavez MD. REASON FOR CONSULTATION: Dysphagia. CHIEF COMPLAINT: "I can't eat." HISTORY OF PRESENT ILLNESS: Briefly, the patient is a pleasant 88-year-old male with a past medical history significant for atrial fibrillation/flutter, for which he is on Eliquis. Over the last 1-[address] [facility], he has had gradually progressive dysphagia. Initially, this was to solids, ultimately to both solids and liquids, and now he is unable to swallow much at all. He is no longer taking any of his medications, as he is unable to tolerate them. In this same period of time, he has noticed some grad ually progressive weight loss. He and his family admit to approximately 1 year of gradual weight los s, that has been more accelerated over the last 1-2 months. He denies painful swallowing. He has had no fevers, chills, or sweats. He denies cough or congestion. He reports he is able to ch ew foods well, transfer foods, but it is upon initiation and completion of swallowing that he will duque ve foods/medications/liquids/saliva feel stuck. He has no prior history of dysphagia. He denies hea rtburn or indigestion symptoms. ALLERGIES: Are to cephalexin and cephalosporins. HOME MEDICATIONS: Included atorvastatin, Avodart, levothyroxine, and Eliquis (his last dose of Eliqu is was more than 48 hours ago). PAST MEDICAL HISTORY: Includes atrial fibrillation, hyperlipidemia, BPH, and chronic anticoagulation . SURGICAL HISTORY: He has had no pertinent surgical history. FAMILY HISTORY: Negative for esophagus cancer, stomach cancer or colon cancer to his knowledge. SOCIAL HISTORY: He does not drink, smoke, or use drugs. REVIEW OF SYSTEMS: A 10-point review was undertaken with the patient. The pertinent positives and n egatives are documented in the history of present illness of present illness. PHYSICAL EXAM: GENERAL: This is an elderly, thin, well-developed male, in no apparent distress. HE ENT: His pupils are equal, round, reactive to light and accommodation. His sclerae are nonicteric. His oropharynx is clear, but his mucous membranes are dry. CARDIOVASCULAR: Reveals regular rate an d rhythm. RESPIRATORY: Reveals no respiratory distress with clear to auscultation throughout. Good inspiratory effort. GI: Reveals normoactive bowel sounds. Soft and nontender abdomen. SKIN: War m and dry without lesions. MUSCULOSKELETAL: Reveals no arthritis. NEURO: Grossly nonfocal. PSYCH : Reveals normal mood and affect. LABORATORY TESTING: White count of 6.28, hemoglobin of 10.6, hematocrit of 33.0, MCV of 102.5, plate let count of 239. INR 1.33. Sodium of 145, potassium of 4.4, chloride of 111, bicarb of 30, BUN of 19, creatinine of 0.9. IMPRESSION AND RECOMMENDATIONS: The patient had gradually progressive solid and liquid food dysphagi a. He is now no longer able to tolerate liquids or pills. In this setting, he has had gradually wor sening p.o. intake and weight loss. The differential diagnosis is broad. It might include malignanc y, stricture, diverticulum, motility disorder such as achalasia, etc. In order to resolve this diffe rential diagnosis, I recommend the patient undergo upper endoscopy. His last dose of Eliquis has now been greater than 48 hours, and it is safe to proceed with endoscopy with or without dilation with o r without biopsy. Pending the results of endoscopy, we can consider additional workup. A barium swa llow, esophageal manometry, et cetera may all become useful tools pending the results. /[id number]/MODL
--- NOTE | 2018-02-22 09:26 | GIREPORT ---
[facility] - Endoscopy Department Patient Name: Bethel Peters Procedure Date: 02/22/2018 8:28 AM Patient Type: Inpatient Attending MD/ ER Physician: Yuli Almanzar MD Procedure: Upper GI endoscopy Indications: Dysphagia Providers: Yuli Almanzar MD Medicines: Sedation Administered by an Anesthesia Professional Complications: No immediate complications. Description of Procedure: After obtaining informed consent, the endoscope was passed under direct vision. Throughout the procedure, the patient's blood pressure, pulse, and oxygen saturations were monitored continuously. The Endoscope was intro duced through the mouth, and advanced to the third part of duodenum. The uppe r GI endoscopy was accomplished without difficulty. The patient tolerated th e procedure well. Findings: The examined esophagus was normal. Biopsies were taken with a cold forc eps for histology. A guidewire was placed and the scope was withdrawn. Dila tion was performed with a Savary dilator with no resistance at 54 Fr. Diffuse mild inflammation characterized by congestion (edema) was found in the stomach. Biopsies were taken with a cold forceps for histology. The examined duodenum was normal. Estimated Blood Loss: Estimated blood loss: none. Post Op Diagnosis: - Normal esophagus. Biopsied. Dilated. - Gastritis. Biopsied. - Normal examined duodenum. Recommendation: - Return patient to [facility] for ongoing care. - Perform an esophagram tomorrow. - Await pathology results. - No clear explanation for dysphagia. - Additional w/u with swallow study and esophagram is indicated. Attending Participation: I personally performed the entire procedure. Yuli Almanzar MD Yuli Almanzar MD 02/22/2018 9:26:33 AM This report has been signed electronicallyDaus Yohan MD Number of Addenda: 0 Note Initiated On: 02/22/2018 8:28 AM [email or web address]
[2018-02-22] MEDS ORDERED: ALBUTEROL 3 ML DEYVIAL IH PRN (09:35)
[2018-02-22] MEDS ORDERED: NALOXONE HCL 0.4 MG/ML INJ IVP PRN (09:35)
--- NOTE | 2018-02-22 09:37 | POSTANESTH ---
Post Anesthetic Evaluation Cardiovascular Status: Similar to Pre-Op Cond Respiratory Status: Similar to Pre-op Cond. Level of Consciousness/Mental Status: Mildly Sleepy, Arousable Pain Control: Adequate, Prn Tx Ordered Nausea/Vomiting Control: Adequate, Prn Tx Ordered Complications Possibly Related to Anesthesia: None Noted
[2018-02-22] MEDS: PANTOPRAZOLE SODIUM 40 MG VIAL IVP SCH ×2 (10:40→21:01)
--- NOTE | 2018-02-22 11:59 | ASMTCMCOM ---
CM Note CM Note Notes: Patient admitted for difficulty swallowing. He had a GI consult yesterday and an upper endoscopy today which showed a normal esophagus. He teresita need a swallow study and esophogram tomorrow. Patient lives alone but has a supportive and involved daughter, Anne-Marie. PT/OT evals have been ordered. Case Management will follow for discharge planning. Date Signed: 02/22/2018 11:58 AM Electronically Signed By:Savita Cordova RN
--- NOTE | 2018-02-22 13:00 | HOSPPROG ---
Hospitalist Progress Note Assessment/Plan: Patient is an 88-year-old male with a history of atrial fibrillation, hyperlipidemia and hypothyroidism who presented to the emergency room with progressive dysphagia symptoms. Today is my 1st encounter with the patient. Chart reviewed. Appreciate Dr. Almanzar he seeing the patient *progressive dysphagia with associated weight loss -s/p EGD with dilation -GI ordered further studies -patient is feeling much better after dilation, says the clear liquids are going down easier *AFIB/flutter -s/p ablation -Eliquis on hold -prn Metoprolol ordered -reviewed 12 lead ekg and it showed sinus with PAC's -during my evaluation he was in sinus *anemia *Hypothyroidism -resume home meds *BPH -home meds *Plan: further studies tomorrow, will hold Eliquis through tomorrow, resumed oral beta bradford, will place him on telemetry for monitoring. Discussed his care with his daughters at the bedside. Subjective: Don is feeling much better this afternoonl Objective: Vital Signs Temp Pulse Resp BP Pulse Ox 36.4 C 79 18 127/65 H 98 02/22/18 12:16 02/22/18 12:16 02/22/18 12:16 02/22/18 12:16 02/22/18 12:16 Laboratory Results 02/22/18 04:30 02/22/18 04:30 02/21/18 02/22/18 02/23/18 05:59 05:59 05:59 Intake Total 1768 200 Output Total 225 60 Balance 1543 140 PT 16.7 SEC (12.0-15.0) H 02/21/18 18:58 INR 1.33 (0.83-1.16) H 02/21/18 18:58 - Physical Exam Constitutional: no apparent distress Eyes: PERRL Ears, Nose, Mouth, Throat: hearing normal Cardiovascular: regular rate and rhythym Respiratory: no respiratory distress Gastrointestinal: normoactive bowel sounds Skin: warm Musculoskeletal: full muscle strength Neurologic: AAOx3 Psychiatric: interacting appropriately ICD10 Worksheet Patient Problems: Problems Problem Status Onset Difficulty swallowing Acute Atrial flutter Acute
[2018-02-22] MEDS: METOPROLOL TARTRATE 25 MG TAB PO SCH (20:56)
--- NOTE | 2018-02-23 07:20 | SOAPPROG ---
SOAP Progress Note Assessment/Plan: Assessment: 1. Dysphagia - improved after EGD with dilation - no clear source of dysphagia noted - path pending - await speech/path/esophagram eval today - hopefully after studies can start a diet - ok to resume anticoagulation today - continue PPI QD - will follow, although can dc home with GI f/u after today's studies if able to tolerate po/meds 02/23/18 07:16 Subjective: CC: dysphagia S: doing better tolerated clears last night swallowed a pill as well no chest pain no sob no fever no change in BMs Objective: Vital Signs Temp Pulse Resp BP Pulse Ox 36.6 C 83 21 H 106/61 95 02/23/18 04:00 02/23/18 04:00 02/23/18 04:00 02/23/18 04:00 02/23/18 04:00 Laboratory Results 02/22/18 04:30 02/22/18 04:30 02/22/18 02/23/18 02/24/18 05:59 05:59 05:59 Intake Total 1768 600 Output Total 225 635 Balance 1543 -35 PT 16.7 SEC (12.0-15.0) H 02/21/18 18:58 INR 1.33 (0.83-1.16) H 02/21/18 18:58 Physical Exam - Physical Exam General Appearance: alert EENT: PERRL/EOMI Respiratory: lungs clear, normal breath sounds Cardiac/Chest: normal peripheral pulses, regular rate, rhythm Abdomen: normal bowel sounds, non-tender, soft, No organomegaly Skin: normal color, warm/dry, No cyanosis, No diaphoresis, No jaundice Extremities: normal range of motion Neuro/Psych: no motor/sensory deficits ICD10 Worksheet Patient Problems: Problems Problem Status Onset Difficulty swallowing Acute Atrial flutter Acute
--- NOTE | 2018-02-23 08:30 | HOSPPROG ---
Hospitalist Progress Note Assessment/Plan: Patient is an 88-year-old male with a history of atrial fibrillation, hyperlipidemia and hypothyroidism who presented to the emergency room with progressive dysphagia symptoms. *progressive dysphagia with associated weight loss -s/p EGD with dilation -s/p video - patient has severe aspiration/ reviewed the results w Kelley with ST , Also, spoke with Dr Servin -Dr Servin to discuss w family options -suspect he needs a peg to get nutrition due to the above *AFIB/flutter -s/p ablation -Eliquis on hold -scheduled Metoprolol ordered -reviewed 12 lead ekg and it showed sinus with PAC's -during my evaluation he was in sinus -reviewed maturity checker and he has been in sinus to ST with PAC's *anemia *Hypothyroidism -resume home meds *BPH -home meds *Plan: keep NPO due to the results of video. Dr Servin to see and likely place a peg tomorrow or weds. Will cont holding Eliquis. Updated patient and daughters on plan of care. They were disappointed but very appreciative of the care. Will initiate IV fluids and schedule IV metoprolol. Subjective: Don has no complaints, very disappointed about not eating. Objective: Vital Signs Temp Pulse Resp BP Pulse Ox 36.4 C 95 18 99/47 L 93 02/23/18 07:57 02/23/18 07:57 02/23/18 07:57 02/23/18 07:57 02/23/18 07:57 Laboratory Results 02/22/18 04:30 02/22/18 04:30 02/22/18 02/23/18 02/24/18 05:59 05:59 05:59 Intake Total 1768 600 Output Total 225 635 300 Balance 1543 -35 -300 PT 16.7 SEC (12.0-15.0) H 02/21/18 18:58 INR 1.33 (0.83-1.16) H 02/21/18 18:58 - Physical Exam Constitutional: no apparent distress, not in pain, other (slender) Eyes: PERRL Ears, Nose, Mouth, Throat: hearing normal Cardiovascular: regular rate and rhythym Respiratory: no respiratory distress Gastrointestinal: normoactive bowel sounds Skin: warm Musculoskeletal: full muscle strength Neurologic: AAOx3 Psychiatric: interacting appropriately ICD10 Worksheet Patient Problems: Problems Problem Status Onset Difficulty swallowing Acute Atrial flutter Acute
[2018-02-23] MEDS ORDERED: NS 500 ML IV ONE (08:42)
[2018-02-23] MEDS: METOPROLOL TARTRATE 25 MG TAB PO SCH (08:45)
[2018-02-23] MEDS ORDERED: D5W 1/2 NS 1,000 ML IV SCH (11:30)
[2018-02-23] MEDS: PANTOPRAZOLE SODIUM 40 MG VIAL IVP SCH ×2 (12:03→22:27)
--- NOTE | 2018-02-23 12:06 | ASMTCMCOM ---
CM Note CM Note Notes: Pt had swallow study today, PEG tube a possibility per RN. DC needs not clear yet. OT recommending HHC vs SNF, awaiting PT rec. Met w/daughter, Anne-Marie, briefly today (pt was alsoeep) and she asked that we come back tomorrow when they know more. CM will follow. Date Signed: 02/23/2018 12:06 PM Electronically Signed By:Johanna Mills RN
[2018-02-23] MEDS ORDERED: METOPROLOL TARTRATE 5 MG/5 ML INJ IVP SCH (14:00)
[2018-02-23] MEDS: D5W NS 1,000 ML IV SCH (14:12)
[2018-02-23] MEDS: METOPROLOL TARTRATE 5 MG/5 ML INJ IVP SCH ×2 (14:12→22:24)
[2018-02-24] MEDS: D5W NS 1,000 ML IV SCH ×2 (03:23→23:14)
[2018-02-24] MEDS: METOPROLOL TARTRATE 5 MG/5 ML INJ IVP SCH ×3 (06:01→23:07)
[2018-02-24] MEDS ORDERED: LR 1,000 ML IV ONE (06:52)
[2018-02-24] MEDS ORDERED: CLINDAMYCIN 900 MG/DEXTROSE 50 ML IV ONE (07:12)
[2018-02-24] MEDS ORDERED: PROPOFOL/EMULSION 500 MG/50 ML BOTTLE IV ONE (07:19)
--- NOTE | 2018-02-24 07:24 | PDANEPAE ---
ANE Past Medical History - Cardiovascular History Hx Arrhythmias: Yes - Pulmonary History Hx Oxygen in Use at Home: No Hx Sleep Apnea: No Sleep Apnea Screening Result - Last Documented: Negative - Endocrine History Hx Diabetes: No - Renal History Renal History Comment: BPH - GI History Gastrointestinal History Comment: diverticulosis - Chronic Pain History Chronic Pain: No ANE Review of Systems Review of Systems: ANE Patient History - Allergies Allergies/Adverse Reactions: cephalexin [From Keflex] Allergy (Verified 12/26/17 11:20) Rash Cephalosporins Allergy (Verified 08/20/17 13:32) Rash - Home Medications Home Medications: Atorvastatin Calcium [Lipitor 10 mg (*)] 10 mg PO DAILY 08/20/17 [Last Taken ] Atorvastatin Calcium [Lipitor 20 mg (*)] 20 mg PO DAILY 08/20/17 [Last Taken ] Dutasteride [Avodart 0.5 MG (*)] 0.5 mg PO DAILY 08/20/17 [Last Taken 02/21/18] Levothyroxine [Synthroid 88 mcg (*)] 88 mcg PO DAILY06 08/20/17 [Last Taken ] - NPO status NPO Since - Liquids (Date): 02/23/18 NPO Since - Liquids (Time): 00:01 NPO Since - Solids (Date): 02/23/18 NPO Since - Solids (Time): 00:01 - Smoking Hx Smoking Status: Never smoked - Alcohol Use Alcohol Use: None ANE Labs/Vital Signs - Labs Result Diagrams: 02/22/18 04:30 02/22/18 04:30 - Vital Signs Blood Pressure: 129/70 Heart Rate: 88 Respiratory Rate: 16 O2 Sat (%): 92 Height: 185.42 cm Weight: 65.771 kg ANE Physical Exam - Airway Neck exam: FROM Mallampati Score: Class 2 Mouth exam: normal dental/mouth exam - Pulmonary Pulmonary: no respiratory distress, no rales or rhonchi, reduced air movement - Cardiovascular Cardiovascular: regular rate and rhythym, no murmur, rub, or gallop - ASA Status ASA Status: III ANE Anesthesia Plan Anesthesia Plan: GA with mask
[2018-02-24] MEDS ORDERED: CALCIUM CHLORIDE 1 GM/10 ML INJ ONE (07:44)
[2018-02-24] MEDS ORDERED: ONDANSETRON 4 MG/2 ML VIAL IVP PRN (07:48)
[2018-02-24] MEDS ORDERED: NALOXONE HCL 0.4 MG/ML INJ IVP PRN (07:48)
[2018-02-24] MEDS ORDERED: ALBUTEROL 3 ML DEYVIAL IH PRN (07:48)
--- NOTE | 2018-02-24 08:47 | GIREPORT ---
[facility] Surgical Services - Endoscopy Department Patient Name: Bethel Peters Procedure Date: 02/24/2018 7:31 AM Patient Type: Inpatient Attending MD/ ER Physician: Yuli Almanzar MD Procedure: Upper GI endoscopy Indications: Oropharyngeal phase dysphagia, Pharyngeal phase dysphagia, Dysphagia Providers: Yuli Almanzar MD Medicines: Cleocin 900 mg IV, Sedation Administered by an Anesthesia Professional Complications: No immediate complications. Description of Procedure: After obtaining informed consent, the endoscope was passed under direct vision. Throughout the procedure, the patient's blood pressure, pulse, and oxygen saturations were monitored continuously. The Endoscope was intro duced through the mouth, and advanced to the second part of duodenum. The [facility] er GI endoscopy was accomplished without difficulty. The patient tolerated th e procedure well. Findings: The examined esophagus was normal. The entire examined stomach was normal. The patient was placed in the s upine position for PEG placement. The stomach was insufflated to appose gastr ic and abdominal hahn. A site was located in the body of the stomach with excellent transillumination and manual external pressure for placement. The abdominal wall was marked and prepped in a sterile manner. The area was anesthetized with 4 mL of 0.5% lidocaine. The trocar needle was introdu raza through the abdominal wall and into the stomach under direct endoscopic view. A snare was introduced through the endoscope and opened in the ga stric lumen. The guide wire was passed through the trocar and into the open s nare. The snare was closed around the guide wire. The endoscope and snare wer e removed, pulling the wire out through the mouth. A skin incision was ma de at the site of needle insertion. The externally removable 20 Fr EndoVive S afety gastrostomy tube was lubricated. The G-tube was tied to the guide wire and pulled through the mouth and into the stomach. The trocar needle was removed, and the gastrostomy tube was pulled out from the stomach throu gh the skin. The external bumper was attached to the gastrostomy tube, and the tube was cut to remove the guide wire. The final position of the gastro stomy tube was confirmed by relook endoscopy, and skin marking noted to be 2 cm at the external bumper. The final tension and compression of the abdominal wall by the PEG tube and external bumper were checked and revealed that the bumper was moderately tight and mildly deforming the skin and that the PEG balloon was moderately tight and mildly compressing the stomach. The fe eding tube was capped, and the tube site cleaned and dressed. The examined duodenum was normal. Estimated Blood Loss: Estimated blood loss: none. Post Op Diagnosis: - Normal esophagus. - Normal stomach. - Normal examined duodenum. - An externally removable PEG placement was successfully completed. - No specimens collected. Recommendation: - Return patient to [facility] for [facility] care. - Resume Eliquis (apixaban) at prior dose in 3 days. Refer to primary physician for further adjustment of therapy. - Please follow the post-PEG recommendations including: Nutrition consu lt for formula and volume, change dressing once per day, change dressing o n top of bumper daily, NPO x4 hrs then water today, may use PEG today for med s and water and use PEG today after checked by physician. Attending Participation: I personally performed the entire procedure. Yuli Almanzar MD Yuli Almanzar MD 02/24/2018 8:46:35 AM This report has been signed electronicallyYuli Almanzar MD Number of Addenda: 0 Note Initiated On: 02/24/2018 7:31 AM [email or web address]
--- NOTE | 2018-02-24 08:52 | POSTANESTH ---
Post Anesthetic Evaluation Cardiovascular Status: Normal, Stable, Similar to Pre-Op Cond Respiratory Status: Normal, Stable, Similar to Pre-op Cond. Level of Consciousness/Mental Status: Can Participate in Eval Pain Control: Adequate, Prn Tx Ordered Nausea/Vomiting Control: Adequate, Prn Tx Ordered Complications Possibly Related to Anesthesia: None Noted
[2018-02-24] MEDS: PANTOPRAZOLE SODIUM 40 MG VIAL IVP SCH ×2 (10:58→20:37)
--- NOTE | 2018-02-24 12:16 | HOSPPROG ---
Hospitalist Progress Note Assessment/Plan: Patient is an 88-year-old male with a history of atrial fibrillation, hyperlipidemia and hypothyroidism who presented to the emergency room with progressive dysphagia symptoms. *progressive dysphagia with associated weight loss -s/p EGD with dilation -s/p video - patient has severe aspiration -s/p peg -spoke with Dr Servin and he will evaluate tomorrow and if stable can use starting tomorrow -dietary consult ordered/ ok to use for fluids and meds *AFIB/flutter -s/p ablation -Eliquis on hold, can resume in 3 days -the family thought he could stop the Eliquis, I spoke with Dr Martines and he said for the patient to continue until he f/u with him -scheduled iv Metoprolol ordered -reviewed 12 lead ekg and it showed sinus with PAC's -during my evaluation he was in sinus -reviewed radiation monitor and he has been in sinus to ST with PAC's *anemia *Hypothyroidism -resume home meds *BPH -home meds *Severe protein-calorie malnutrition with BMI 19.1 -patient has had 21% weight loss in one year *Plan: reviewed his care with Dr Servin, he will evaluate peg tomorrow and hopefully, can be used. Have asked dietary to see him to help with how much tube feeding he should get. Patient will need a SNF to get his strength back and learn how to use the peg. Montez is very motivated to learn. Subjective: Montez has no complaints except a dry mouth Objective: Vital Signs Temp Pulse Resp BP Pulse Ox 36.5 C 78 16 113/62 93 02/24/18 11:00 02/24/18 11:00 02/24/18 11:00 02/24/18 11:00 02/24/18 11:00 Laboratory Results 02/22/18 04:30 02/22/18 04:30 02/23/18 02/24/18 02/25/18 05:59 05:59 05:59 Intake Total 944 817 6222.5 Output Total 635 600 50 Balance -35 275 1273.5 PT 16.7 SEC (12.0-15.0) H 02/21/18 18:58 INR 1.33 (0.83-1.16) H 02/21/18 18:58 - Physical Exam Constitutional: not in pain, other (thin), No appears nourished Eyes: PERRL Ears, Nose, Mouth, Throat: hearing normal Cardiovascular: regular rate and rhythym Respiratory: no respiratory distress Gastrointestinal: normoactive bowel sounds Skin: warm Musculoskeletal: generalized weakness Neurologic: AAOx3 Psychiatric: interacting appropriately ICD10 Worksheet Patient Problems: Problems Problem Status Onset Difficulty swallowing Acute Atrial flutter Acute
--- NOTE | 2018-02-24 16:13 | ASMTCMCOM ---
CM Note CM Note Notes: Today PT rec SNF, pt and family in agreement. Pt accepted at #1 SNF choice of [facility]. LC will require some notice to order Jevity 1.5 and a couple of bottles sent with him. CM to follow. D/c plan of care: [facility] when medically stable. Date Signed: 02/24/2018 04:13 PM Electronically Signed By:HUSAM Greco
[2018-02-25] MEDS: METOPROLOL TARTRATE 5 MG/5 ML INJ IVP SCH ×2 (05:12→14:25)
--- NOTE | 2018-02-25 09:38 | SOAPPROG ---
SOAP Progress Note Assessment/Plan: Assessment: 1. Dysphagia - s/p0 PEG - site looks good - bumper adjusted to 3-4cm - ok to use for feeds/meds/flushes - ok to resume anticoagulation Tuesday 02/27 - will sign off 02/25/18 09:37 Subjective: CC: dysphagia S: no pain no nausea anxious to start TF no fever Objective: Vital Signs Temp Pulse Resp BP Pulse Ox 36.5 C 66 20 105/61 95 02/25/18 07:32 02/25/18 07:32 02/25/18 07:32 02/25/18 07:32 02/25/18 07:32 Laboratory Results 02/22/18 04:30 02/22/18 04:30 02/24/18 02/25/18 02/26/18 05:59 05:59 05:59 Intake Total 875 2223.5 Output Total 600 425 175 Balance 275 1798.5 -175 PT 16.7 SEC (12.0-15.0) H 02/21/18 18:58 INR 1.33 (0.83-1.16) H 02/21/18 18:58 Physical Exam - Physical Exam General Appearance: alert, no apparent distress EENT: PERRL/EOMI Respiratory: lungs clear Cardiac/Chest: regular rate, rhythm Abdomen: normal bowel sounds, non-tender, other (PEG site looks good) Skin: normal color Extremities: normal range of motion Neuro/Psych: no motor/sensory deficits ICD10 Worksheet Patient Problems: Problems Problem Status Onset Difficulty swallowing Acute Atrial flutter Acute
[2018-02-25] MEDS: PANTOPRAZOLE SODIUM 40 MG VIAL IVP SCH (10:57)
[2018-02-25] MEDS: D5W NS 1,000 ML IV SCH (11:48)
--- NOTE | 2018-02-25 14:41 | HOSPPROG ---
Hospitalist Progress Note Assessment/Plan: Patient is an 88-year-old male with a history of atrial fibrillation, hyperlipidemia and hypothyroidism who presented to the emergency room with progressive dysphagia symptoms. *progressive dysphagia with associated weight loss -s/p EGD with dilation -s/p video - patient has severe aspiration -s/p peg placement -tube feeds started today, have changed his medications back to via peg *AFIB/flutter -s/p ablation -Eliquis on hold, can resume on Friday, February 27 -the family thought he could stop the Eliquis, I spoke with Dr Martines and he said for the patient to continue until he f/u with him -have dc iv metoprolol and resumed his home dose via peg -he has been in sinus with frequent PAC's *anemia *Hypothyroidism -resume home meds *BPH -home med can't be crushed to be used in the peg *Severe protein-calorie malnutrition with BMI 19.1 -patient has had 21% weight loss in one year -has not eaten in 6 days, now with peg tube feedings *Plan: just started peg feeding today- the goal of 50ml/hour. So far tolerating this well; if continues to do well, can dc tomorrow to [facility] in [place]. Subjective: Don is very tired today after working with ST and PT. Objective: Vital Signs Temp Pulse Resp BP Pulse Ox 36.7 C 92 17 98/52 L 96 02/25/18 11:45 02/25/18 14:25 02/25/18 11:45 02/25/18 14:25 02/25/18 11:45 Laboratory Results 02/22/18 04:30 02/22/18 04:30 02/24/18 02/25/18 02/26/18 05:59 05:59 05:59 Intake Total 875 2223.5 Output Total 600 425 175 Balance 275 1798.5 -175 PT 16.7 SEC (12.0-15.0) H 02/21/18 18:58 INR 1.33 (0.83-1.16) H 02/21/18 18:58 - Physical Exam Constitutional: other (thin) Eyes: PERRL Ears, Nose, Mouth, Throat: hearing normal Cardiovascular: regular rate and rhythym Respiratory: no respiratory distress, reduced air movement Gastrointestinal: normoactive bowel sounds Skin: warm, No normal color (pale) Musculoskeletal: generalized weakness Neurologic: AAOx3 Psychiatric: interacting appropriately ICD10 Worksheet Patient Problems: Problems Problem Status Onset Difficulty swallowing Acute Atrial flutter Acute
[2018-02-25] MEDS: LEVOTHYROXINE 88 MCG TAB TUBE SCH (15:18)
[2018-02-25] MEDS: METOPROLOL TARTRATE 25 MG TAB TUBE SCH (21:44)
[2018-02-25] MEDS: LANSOPRAZOLE SUSP 30MG/10ML UDSYR (Adult) TUBE SCH (21:45)
[2018-02-26] MEDS: LEVOTHYROXINE 88 MCG TAB TUBE SCH (04:57)
[2018-02-26] MEDS: METOPROLOL TARTRATE 25 MG TAB TUBE SCH (08:10)
[2018-02-26] MEDS: LANSOPRAZOLE SUSP 30MG/10ML UDSYR (Adult) TUBE SCH (08:19)
[2018-02-26] MEDS ORDERED: ATORVASTATIN CALCIUM 10 MG TAB PO SCH (09:00)
[2018-02-26] MEDS ORDERED: ATORVASTATIN CALCIUM 20 MG TAB TUBE SCH (09:00)
--- NOTE | 2018-02-26 10:38 | PDIAF ---
- Diagnosis Diagnosis: dysphagia Code Status: Full Code - Medication Management Discharge Medications: Medications to Continue on Transfer Apixaban [Eliquis] 5 mg PO BID #60 tab 08/21/17 [Last Taken 02/21/18 09:00] Atorvastatin Calcium [Lipitor 20 mg (*)] 30 mg TUBE DAILY tab 02/26/18 [Last Taken Unknown] Lansoprazole [PREVACID 30mg/10ml susp (Adult) (*)] 30 mg TUBE BID udsyr [Last Taken Unknown] Levothyroxine [Synthroid 88 mcg (*)] 88 mcg TUBE DAILY06 tab 02/26/18 [Last Taken Unknown] Metoprolol Tartrate [Lopressor 25 mg (*)] 12.5 mg TUBE BID tab 02/26/18 [Last Taken Unknown] Discharge Medications: Refer to the Discharge Home Medication list for PRN reason. PICC Care - Routine: N/A - Orders Services needed: Registered Nurse, Physical Therapy, Occupational Therapy, Speech Language Pathologist Diet Texture: No Oral Liquids, Non Oral Meds Additional Instructions: follow up with a neurologist of choice - Follow Up Care Current Providers and Referrals: Christiano Durán MD [Primary Care Provider] - As per Instructions
--- NOTE | 2018-02-26 13:12 | GDS ---
[f rep st] DISCHARGE SUMMARY DISCHARGE DIAGNOSES: 1. Progressive dysphagia with associated weight loss. 2. Atrial fibrillation. 3. Anemia. 4. Hypothyroidism. 5. Benign prostatic hypertrophy. 6. Severe protein-calorie malnutrition. CONSULTATIONS: Gastroenterology. STUDIES AND PROCEDURES DONE: 1. Video swallow. 2. EGD with dilation. 3. PEG tube placement. PHYSICAL EXAM: GENERAL: The patient is alert. VITAL SIGNS: Afebrile at 36.8, pulse is 78, respira tory rate is 16, blood pressure is 109/62. He is saturating greater than 90% on room air. I have se en and evaluated the patient on the day of discharge. HOSPITAL COURSE: The patient is an 88-year-old male who presented to the emergency room with progres sive dysphagia. He was evaluated and diagnosed with: 1. Progressive dysphagia with associated weight loss. The etiology of his dysphagia is unclear at t he time of disposition. It has been recommended he follow up with a neurologist in the outpatient se tting. He did receive EGD and dilation of his esophagus during this hospital course, as well as a vi hamzah esophagram demonstrating severe aspiration. A PEG tube has been placed. The patient is tolerati ng tube feeding well and will continue this in the outpatient setting as well as rehabilitation for a swallow. 2. Atrial fibrillation with flutter. Will continue on his Eliquis and follow up with Dr. Martines in the outpatient setting. 3. Anemia. This is stable. 4. Hypothyroidism. His home meds have been resumed. 5. Severe protein-calorie malnutrition. Again, this is attributed to the patient's severe dysphagia . There is anticipation that this will improve with continued tube feeding and strengthening. DISPOSITION: The patient will be discharged to [facility] for further rehabilitation and management. There are no pending studies. DISCHARGE MEDICATIONS: Please refer to EMR form. Patient's medications have been transitioned from p.o. to tube. FOLLOWUP: Followup will be with his primary care physician, as well as a neurologist of his choice wesley Martines of Cardiology. I have reviewed the patient's disposition with him and his family. They a re all in agreement with this plan. I have spent greater than 35 minutes in the care, coordination, and management of this patient's disc harge. /[id number]/MODL
--- NOTE | 2018-02-26 13:53 | ASMTCMCOM ---
CM Note CM Note Notes: Pt medically stable for d/c to [facility]. Orders sent in [employer]. Moni reports they do not need any of the Jevity 1.5 sent w pt now because they have some. [facility] scheduled wc transport for 17:30. KAVITHA Sweeney to call report. Pt family notified. Date Signed: 02/26/2018 01:52 PM Electronically Signed By:HUSAM Greco
[2018-02-26 15:35] VITALS: BP 104/57
--- NOTE | 2018-02-26 15:58 | ASMTCMCOM ---
CM Note CM Note Notes: [facility] now can pickup at 1630, pt and family updated. Also, Natividad nicolas [facility] states they will assist family in following up with neurology since the family brought this up. Date Signed: 02/26/2018 03:57 PM Electronically Signed By:HUSAM Greco
--- NOTE | 2018-02-26 16:47 | ASDISCHSUM ---
Discharge Information Plan Status:SNF Medically Cleared to Leave: Discharge Date:02/26/2018 04:45 PM CM D/C Disposition:Long-Term Facility ADT D/C Disposition:Long-Term Facility Projected Discharge Date:02/25/2018 11:00 AM Transportation at D/C:Wheelchair Van Discharge Delay Reason: Follow-Up Date:02/25/2018 11:00 AM Discharge Slot: Final Diagnosis: Placement Information Referral Type:*Retirement/SNF Referral ID:[id number] Provider Name:[facility] Address 1:[address] Address 2: City:[place] Selection Factors: State:[place] Patient Contact Information Contact Name:MOHINDER Relationship:Daughter Address:[address] Work Phone: [facility]:[place] Alternate Phone: State/Zip Code:[place] [address] Email: Financial Information Financial Class:Medicare Primary Plan Desc:MEDICARE INPATIENT Primary Plan Number:[id number] Secondary Plan Desc:BARON OLGAMounika [facility] Secondary Plan Number:[id number] Assessment Information [facility] CM Progress Note CM Note CM Note Notes: Patient admitted for difficulty swallowing. He had a GI consult yesterday and an upper endoscopy today which showed a normal esophagus. He teresita need a swallow study and esophogram tomorrow. Patient lives alone but has a supportive and involved daughter, Anne-Marie. PT/OT evals have been ordered. Case Management will follow for discharge planning. Date Signed: 02/22/2018 11:58 AM Electronically Signed By:Savita Cordova RN [facility] CM Progress Note CM Note CM Note Notes: Pt had swallow study today, PEG tube a possibility per RN. DC needs not clear yet. OT recommending HHC vs SNF, awaiting PT rec. Met w/daughter, Anne-Marie, briefly today (pt was alsoeep) and she asked that we come back tomorrow when they know more. CM will follow. Date Signed: 02/23/2018 12:06 PM Electronically Signed By:Johanna Mills RN [facility] CM Progress Note CM Note CM Note Notes: Today PT rec SNF, pt and family in agreement. Pt accepted at #1 SNF choice of [facility]. LC will require some notice to order Jevity 1.5 and a couple of bottles sent with him. CM to follow. D/c plan of care: [facility] when medically stable. Date Signed: 02/24/2018 04:13 PM Electronically Signed By:HUSAM Greco [facility] CM Progress Note CM Note CM Note Notes: Pt medically stable for d/c to [facility]. Orders sent in [employer]. Moni reports they do not need any of the Jevity 1.5 sent w pt now because they have some. [facility] scheduled wc transport for 17:30. KAVITHA Sweeney to call report. Pt family notified. Date Signed: 02/26/2018 01:52 PM Electronically Signed By:HUSAM Greco [facility] CM Progress Note CM Note CM Note Notes: [facility] now can pickup at 1630, pt and family updated. Also, Natividad nicolas [facility] states they will assist family in following up with neurology since the family brought this up. Date Signed: 02/26/2018 03:57 PM Electronically Signed By:HUSAM Greco Intervention Information Intervention Type:*IM-Signed Date of Service:02/26/2018 11:13 AM Patient Type:Inpatient Staff Member:Kiki Olivarez Hours: Discipline: Severity: Comment:
== END 2018-02-26 16:45 | DRG 391 ==
LOC: OBSVTOIN 18:53 → INTOOBSV 18:53 → F3N 19:50
PROVIDERS: ADMIT Hospitalist; ATTEND Hospitalist
PROC: 0D758ZZ Dilation of Esophagus, Via Natural or Artificial Opening Endoscopic (ICD-10-PCS; 2018-02-22)
PROC: 0DB58ZX Excision of Esophagus, Via Natural or Artificial Opening Endoscopic, Diagnostic (ICD-10-PCS; 2018-02-22)
PROC: 0DB68ZX Excision of Stomach, Via Natural or Artificial Opening Endoscopic, Diagnostic (ICD-10-PCS; 2018-02-22)
PROC: 0DH63UZ Insertion of Feeding Device into Stomach, Percutaneous Approach (ICD-10-PCS; principal; 2018-02-24 07:30)
DX: R13.10 Dysphagia, unspecified (principal); E43 Unspecified severe protein-calorie malnutrition; Z68.1 Body mass index [BMI] 19.9 or less, adult; R63.4 Abnormal weight loss; I48.91 Unspecified atrial fibrillation; I48.92 Unspecified atrial flutter; D64.9 Anemia, unspecified; N40.0 Benign prostatic hyperplasia without lower urinary tract symptoms; E03.9 Hypothyroidism, unspecified; I10 Essential (primary) hypertension; E78.00 Pure hypercholesterolemia, unspecified; Z79.01 Long term (current) use of anticoagulants
CPT/HCPCS: 92526-GN; 92610-GN; 92611-GN; 96374; 97116-GP; 97161-GP; 97165-GO; 97530-GO; 97535-GO; B4087; G8978-GP-CJ; G8979-GP-CI; G8987-GO-CJ; G8988-GO-CJ; G8996-GN-CI; G8996-GN-CM; G8997-GN-CH; G8997-GN-CJ; G8998-GN-CL; J2001; J2704; J3010